=== PATIENT | male | born 1945 | race Caucasian/White ===

== ENCOUNTER 2019-07-03 13:14 | Emergency (ER) | payer MEDICARE, SELFPAY ==
[2019-07-03 13:20] VITALS: BP 149/83; PULSE 106; RESP 18; TEMP 38.3; O2SAT 96
--- NOTE | 2019-07-03 13:53 | ED.URI ---
HPI - URI/Sore Throat General Chief Complaint: Upper Respiratory Infection Stated Complaint: cough/fever Time Seen by Provider: 07/03/19 13:45 Source: patient and RN notes reviewed Mode of arrival: ambulatory Limitations: no limitations History of Present Illness HPI Narrative: Patient presents today complaining of fever up to 102, cough, body aches, headache, congestion, rhinorrhea since last night. Denies shortness of breath, nausea, vomiting. He has been taking Tylenol without relief. reports Tylenol does decrease fever. He did receive a flu vaccine this season. Denies history of asthma or COPD. MD elicited complaint: fever Related Data Home Medications Medication Instructions Recorded Confirmed aspirin [Adult Low Dose Aspirin] 07/03/19 atorvastatin 07/03/19 isosorbide mononitrate mg PO 07/03/19 lisinopril 07/03/19 Allergies Allergy/AdvReac Type Severity Reaction Status Date / Time No Known Allergies Allergy Verified 07/03/19 13:26 Review of Systems Review of Systems: Narrative: CONSTITUTIONAL: Denies chills, or sweats.+ Fever, body aches EYES: Denies visual changes, redness, or discharge. ENT: Denies sore throat, or otalgia.+ Congestion, rhinorrhea CARDIOVASCULAR: Denies chest pain, palpitations, or edema. RESPIRATORY: Denies cough or dyspnea. GASTROINTESTINAL: Denies abdominal pain, nausea, vomiting, or diarrhea. GENITOURINARY: Denies dysuria or hematuria. SKIN: Denies rash, itching, or wounds. MUSCULOSKELETAL: Denies back pain, joint pain, or myalgia. NEUROLOGIC: Denies numbness, tingling, or weakness.+ Headache PSYCH: Denies depression or anxiety. PMFSH Comments At time of signature, I have reviewed and agree with nursing past medical, surgical, social and family history unless otherwise noted. Please see nursing chart for further information. There is no relevant family history pertinent to the presenting complaint Exam Narrative: Exam Narrative: GENERAL: Mildly ill-appearing, well-nourished, and in no acute distress. HEAD: Normocephalic, atraumatic. EYES: EOMI. No redness or drainage. Conjunctivae normal. ENT: Mucous membranes pink and moist. Nares congested. No rhinorrhea. TMs normal bilaterally. Throat normal. Uvula midline. NECK: Normal AROM. Supple. No lymphadenopathy. CHEST: No respiratory distress. Clear to auscultation. HEART: Regular rate and rhythm. No murmur appreciated. Normal peripheral pulses. EXTREMITIES: Normal range of motion. No edema. SKIN: Warm, dry, no rash. NEURO: No focal deficits. Alert and oriented x3. Gait steady. PSYCH: Normal affect. No signs of depression or anxiety. Course Vital Signs Vital signs: Vital Signs Temperature 101.0 F H 07/03/19 13:20 Pulse Rate 106 H 07/03/19 13:20 Respiratory Rate 18 07/03/19 13:20 Blood Pressure 149/83 H 07/03/19 13:20 Pulse Oximetry 96 07/03/19 13:20 Temperature 101.0 F H 07/03/19 13:20 Pulse Rate 106 H 07/03/19 13:20 Respiratory Rate 18 07/03/19 13:20 Blood Pressure 149/83 H 07/03/19 13:20 Pulse Oximetry 96 07/03/19 13:20 Reviewed. Pt has been instructed to follow up with his PCP regarding his elevated blood pressure today. MDM - URI/Sore Throat Differential Diagnosis Differential diagnosis: Likely upper respiratory infection, sinusitis, viral infection and influenza Lab Data Attestation: I reviewed the patient's lab results. Labs: Influenza A Screen Positive Reference Range: Negative Influenza B Screen Negative Reference Range: Negative Critical Care Time Critical Care Time Critical Care Time: No Discharge Plan Discharge Clinical Impression: Influenza A Patient Disposition: Home, Self-Care Condition: Stable Instructions: Influenza (DC) Additional Instructions: You are positive for influenza A. You will be contagious for 4 more days. Take Tylenol or ibuprofen at home for pain or fever. Follow-up with patito
== END 2019-07-03 13:55 | disposition home or self-care (01) ==
PROVIDERS: Emergency Provider Nurse Practitioner; PCP Family Medicine
DX: J10.1 Influenza due to other identified influenza virus with other respiratory manifestations (principal); I10 Essential (primary) hypertension
CPT/HCPCS: 87804; 99212; G0463

== ENCOUNTER 2022-08-17 14:00 | Outpatient (CLI) | payer MEDICARE, SELFPAY ==
[2022-08-17 18:16] LABS: Basophils Absolute Auto 0.1 K/mm3 (0.0-0.1); Basophils Percent Auto 0.8 % (0.2-1.2); Eosinophils Absolute Auto 0.4 K/mm3 (0-0.3); Eosinophils Percent Auto 5.5 % (0-4.4); Hematocrit 42.4 % (42.0-52.0); Hemoglobin 14.1 g/dL (14.0-18.0); Immature Granulocyte Absolute 0.02 K/mm3 (0.00-0.031); Immature Granulocyte Percent A 0.3 % (0-0.5); Lymphocytes Absolute Auto 1.92 K/mm3 (0.9-3.2); Lymphocytes Percent Auto 29.2 % (18.3-44.2); Mean Corpuscular HGB Conc 33.3 g/dl (32-36); Mean Corpuscular Hemoglobin 30.5 pg (26-34); Mean Corpuscular Volume 91.8 fl (80-100); Monocytes Absolute Auto 0.8 K/mm3 (0.1-0.6); Monocytes Percent Auto 12.6 % (2.6-8.5); Neutrophils Absolute Auto 3.4 K/mm3 (1.3-6.7); Neutrophils Percent Auto 51.6 % (45.5-73.1); Platelet Count Result 233 k/mm3 (150-375); Red Blood Count 4.62 M/mm3 (4.6-6.20); Red Cell Distribution Width 13.1 % (11.5-14.5); White Blood Count 6.6 K/mm3 (4.5-10.0)
[2022-08-17 18:55] LABS: Alanine Aminotransferase 29 U/L (6-50); Albumin Level 4.2 g/dL (3.5-5.1); Alkaline Phosphatase 91 U/L (38-126); Anion Gap 4 mmol/L (8-16); Aspartate Amino Transferase 76 U/L (17-59); Blood Urea Nitrogen 17 mg/dL (9-20); Calcium 8.9 mg/dL (8.4-10.2); Carbon Dioxide 34 mmol/L (22-30); Chloride 102 mmol/L (98-107); Cholesterol 117 mg/dL (0-200); Estimated Glomerular Filt Rate > 60; Glucose 74 mg/dL (65-110); HDL Direct 34 mg/dL; Potassium 4.8 mmol/L (3.4-5.0); Sodium 140 mmol/L (137-145); Triglycerides 105 mg/dL (<150)
[2022-08-17 19:06] LABS: LDL Cholesterol Direct 52 mg/dL; Thyroid Stimulating Hormone Reflex 0.513 uIU/mL (0.465-4.68)
[2022-08-17 19:22] LABS: Prostate Specific Antigen 4.7 ng/mL (< OR = 4.0)
== END 2022-08-17 14:01 | disposition home or self-care (01) ==
LOC: ANHGOSHLAB 14:01
PROVIDERS: PCP Family Medicine; Visit Provider Family Medicine
DX: E78.5 Hyperlipidemia, unspecified (principal); E53.8 Deficiency of other specified B group vitamins; I10 Essential (primary) hypertension; E55.9 Vitamin D deficiency, unspecified; Z12.5 Encounter for screening for malignant neoplasm of prostate
CPT/HCPCS: 36415; 80053; 80061; 82306; 82607; 84153; 84443; 85025; G0103

== ENCOUNTER 2022-09-20 10:40 | Outpatient (CLI) | payer MEDICARE, SELFPAY ==
[2022-09-20 19:16] LABS: Alanine Aminotransferase 27 U/L (6-50); Albumin Level 4.2 g/dL (3.5-5.1); Alkaline Phosphatase 93 U/L (38-126); Anion Gap 7 mmol/L (8-16); Aspartate Amino Transferase 67 U/L (17-59); Bilirubin,Total 0.9 mg/dL (0.2-1.3); Blood Urea Nitrogen 13 mg/dL (9-20); Calcium 8.9 mg/dL (8.4-10.2); Carbon Dioxide 30 mmol/L (22-30); Chloride 103 mmol/L (98-107); Estimated Glomerular Filt Rate > 60; Glucose 75 mg/dL (65-110); Potassium 4.3 mmol/L (3.4-5.0); Sodium 140 mmol/L (137-145)
[2022-09-25 11:05] LABS: PSA, Free 0.96 ng/mL; PSA, Total 4.4 ng/mL (<=4.0); Percent Free Prostate Spec Ag 22 % (>25)
== END 2022-09-20 10:41 | disposition home or self-care (01) ==
LOC: ANHGOSHLAB 10:40
PROVIDERS: PCP Family Medicine; Visit Provider Family Medicine
DX: R79.89 Other specified abnormal findings of blood chemistry (principal); R97.20 Elevated prostate specific antigen [PSA]
CPT/HCPCS: 36415; 80053; 84153; 84154

== ENCOUNTER 2023-02-14 10:11 | Outpatient (CLI) | payer MEDICARE, SELFPAY ==
[2023-02-14 18:59] LABS: Prothrombin Time 13.7 Seconds (11.1-14.7)
[2023-02-14 19:15] LABS: Alanine Aminotransferase 27 U/L (6-50); Albumin Level 4.2 g/dL (3.5-5.1); Alkaline Phosphatase 84 U/L (38-126); Anion Gap 4 mmol/L (8-16); Aspartate Amino Transferase 63 U/L (17-59); Bilirubin,Total 1.2 mg/dL (0.2-1.3); Blood Urea Nitrogen 18 mg/dL (9-20); Calcium 9.3 mg/dL (8.4-10.2); Carbon Dioxide 32 mmol/L (22-30); Chloride 103 mmol/L (98-107); Estimated Glomerular Filt Rate > 60; Glucose 76 mg/dL (65-110); Potassium 4.3 mmol/L (3.4-5.0); Sodium 139 mmol/L (137-145)
[2023-02-17 19:26] LABS: PSA, Free 0.91 ng/mL; PSA, Total 4.5 ng/mL (<=4.0); Percent Free Prostate Spec Ag 20 % (>25)
== END 2023-02-14 10:12 | disposition home or self-care (01) ==
PROVIDERS: PCP Family Medicine; Visit Provider Family Medicine
DX: R97.20 Elevated prostate specific antigen [PSA] (principal); I10 Essential (primary) hypertension; R79.89 Other specified abnormal findings of blood chemistry; I51.89 Other ill-defined heart diseases; I25.10 Atherosclerotic heart disease of native coronary artery without angina pectoris; Z79.899 Other long term (current) drug therapy
CPT/HCPCS: 36415; 80053; 84153; 84154; 85610

== ENCOUNTER 2023-08-30 09:58 | Outpatient (CLI) | payer MEDICARE, SELFPAY ==
[2023-08-30 13:57] LABS: Basophils Percent Auto 0.4 % (0.2-1.2); Eosinophils Absolute Auto 0.4 K/mm3 (0-0.3); Eosinophils Percent Auto 5.1 % (0-4.4); Hematocrit 45.8 % (42.0-52.0); Hemoglobin 14.7 g/dL (14.0-18.0); Immature Granulocyte Absolute 0.02 K/mm3 (0.00-0.031); Immature Granulocyte Percent A 0.3 % (0-0.5); Lymphocytes Absolute Auto 1.83 K/mm3 (0.9-3.2); Lymphocytes Percent Auto 25.3 % (18.3-44.2); Mean Corpuscular HGB Conc 32.1 g/dl (32-36); Mean Corpuscular Hemoglobin 30.6 pg (26-34); Mean Corpuscular Volume 95.4 fl (80-100); Mean Platelet Volume 10.5 fl (7.4-10.4); Monocytes Absolute Auto 0.8 K/mm3 (0.1-0.6); Monocytes Percent Auto 10.4 % (2.6-8.5); Neutrophils Absolute Auto 4.2 K/mm3 (1.3-6.7); Neutrophils Percent Auto 58.5 % (45.5-73.1); Platelet Count Result 219 k/mm3 (150-375); Red Cell Distribution Width 13.2 % (11.5-14.5); White Blood Count 7.2 K/mm3 (4.5-10.0)
[2023-08-30 14:03] LABS: Alanine Aminotransferase 31 U/L (6-50); Albumin Level 4.3 g/dL (3.5-5.1); Alkaline Phosphatase 83 U/L (38-126); Anion Gap 6 mmol/L (4-12); Aspartate Amino Transferase 57 U/L (17-59); Blood Urea Nitrogen 16 mg/dL (9-20); Calcium 9.6 mg/dL (8.4-10.2); Carbon Dioxide 27 mmol/L (22-30); Chloride 108 mmol/L (98-107); Cholesterol 139 mg/dL (0-200); Estimated Glomerular Filt Rate > 60; Glucose 100 mg/dL (65-110); HDL Direct 43 mg/dL; Potassium 4.3 mmol/L (3.4-5.0); Sodium 141 mmol/L (137-145); Triglycerides 102 mg/dL (<150)
[2023-08-30 14:14] LABS: LDL Cholesterol Direct 71 mg/dL
[2023-08-30 15:01] LABS: Vitamin D 25 Hydroxy 26.3 ng/mL
[2023-09-02 11:04] LABS: PSA, Free 1.1 ng/mL; PSA, Total 5.8 ng/mL (< OR = 4.0); Percent Free Prostate Spec Ag 19 % (calc) (>25)
== END 2023-08-30 09:59 | disposition home or self-care (01) ==
LOC: ANHGOSHLAB 09:59
PROVIDERS: PCP Family Medicine; Visit Provider Family Medicine
DX: R97.20 Elevated prostate specific antigen [PSA] (principal); I51.89 Other ill-defined heart diseases; I10 Essential (primary) hypertension; E53.8 Deficiency of other specified B group vitamins; E55.9 Vitamin D deficiency, unspecified; E78.5 Hyperlipidemia, unspecified; Z51.89 Encounter for other specified aftercare
CPT/HCPCS: 36415; 80053; 80061; 82306; 82607; 84153; 84154; 84443; 85025

== ENCOUNTER 2024-02-21 08:34 | Outpatient (CLI) | payer MEDICARE, SELFPAY ==
--- NOTE | ~2024-02-21 | NM_ITS ---
Whole-body bone scan: History: Prostate cancer. Radiopharmaceutical: 24.6 mCi of technetium 99m MDP was administered intravenously. COMPARISON: None Procedure: Three hour delayed anterior and posterior whole-body bone scan was performed. Findings: No abnormal uptake seen to suggest osteoblastic metastatic disease. Probable mild degenerat patricia uptake at the shoulders and sternoclavicular joints.. Impression: No evidence of osteoblastic metastatic disease. Reviewed, dictated and finalized at location . Impression: No evidence of osteoblastic metastatic disease.
--- NOTE | ~2024-02-21 | CT_ITS ---
CT of the Abdomen and Pelvis: Indication: Prostate cancer Technique: 2.5 mm axial scans were obtained through the abdomen and pelvis following intravenous adm inistration of 100 cc of Omnipaque 350. Dose reduction technique was used on this scan by utilizing a utomated exposure control and iterative reconstruction technique. The dose-length product (DLP) was 1 314.00 mGy-cm. Findings: Scans through the lung bases demonstrate 6 mm right basilar pulmonary nodule (axial image 30). There is bibasilar atelectatic change. The liver, spleen, pancreas, gallbladder, adrenals and kidneys are within normal limits. There are at herosclerotic calcifications of the aorta. Distal abdominal aorta measures up to 3.1 cm in diameter. No lymphadenopathy. No bowel obstruction or bowel wall thickening. There is no evidence to suggest acute appendicitis. Images through the pelvis were performed. Urinary bladder unremarkable. Prostate gland is enlarged. N o pelvic mass evident. No ascites. Impression: 6 mm right basilar pulmonary nodule, indeterminate. Follow-up exam advised given history of prostate cancer. No evidence of metastatic disease noted or pelvis otherwise. Enlarged prostate gland. 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 Reviewed, dictated and finalized at location M. Impression: 6 mm right basilar pulmonary nodule, indeterminate. Follow-up exam advised give n history of prostate cancer. No evidence of metastatic disease noted or pelvis otherwise. Enlarged prostate gland. 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
[2024-02-21 09:15] LABS: Estimated Glomerular Filt Rate > 60
== END 2024-02-21 08:35 | disposition home or self-care (01) ==
LOC: ANHIMG 08:38
PROVIDERS: PCP Family Medicine; Visit Provider Urology
DX: C61 Malignant neoplasm of prostate (principal)
CPT/HCPCS: 74177; 78306; A9503; Q9967

== ENCOUNTER 2024-03-05 09:10 | Outpatient (CLI) | payer MEDICARE, SELFPAY ==
[2024-03-05 19:08] LABS: Alanine Aminotransferase 36 U/L (6-50); Albumin Level 4.4 g/dL (3.5-5.1); Alkaline Phosphatase 105 U/L (38-126); Anion Gap 9 mmol/L (4-12); Aspartate Amino Transferase 57 U/L (17-59); Bilirubin,Total 1.4 mg/dL (0.2-1.3); Blood Urea Nitrogen 15 mg/dL (9-20); Carbon Dioxide 28 mmol/L (22-30); Chloride 101 mmol/L (98-107); Estimated Glomerular Filt Rate > 60; Glucose 102 mg/dL (65-110); Potassium 4.5 mmol/L (3.4-5.0); Sodium 138 mmol/L (137-145)
[2024-03-05 19:45] LABS: Vitamin D 25 Hydroxy 29.1 ng/mL
[2024-03-05 22:38] LABS: Hemoglobin A1C 5.9 % (<5.7)
== END 2024-03-05 09:11 | disposition home or self-care (01) ==
LOC: ANHGOSHLAB 09:11
PROVIDERS: PCP Family Medicine; Visit Provider Family Medicine
DX: R73.9 Hyperglycemia, unspecified (principal); E55.9 Vitamin D deficiency, unspecified; I10 Essential (primary) hypertension
CPT/HCPCS: 36415; 80053; 82306; 83036

== ENCOUNTER 2024-09-17 07:00 | Outpatient (NON) | payer MEDICARE, SELFPAY ==
--- NOTE | 2024-09-17 14:03 | S_PTH ---
PATIENT: Reed Michel LOC: ANHLAB #:[id number] AGE/SX: 79/M ROOM: RE09/17/[address]: Miller Sylvester MD : 1945 BED: DIS: 09/17/2024 SPEC #: [id number] RECD: 09/18/24 06:55 STATUS: DAWNA REQ #: [id number] PRADIP: 09/17/24 14:[address]: Miller Sylvester DEPT: [facility] Surgical RECD BY: Nicolasa Hillman Tissues: A - Skin Procedures: Hematoxylin and Eosin Stain Gross and Microscopic Level 4 Comments: @ Originally on account #[id number] Req #[id number]
--- OUTSIDE RECORDS SUMMARY | 2025-08-17 15:25 | XMS_ITS | Clinical Summary ---
Author Organization [facility] Address [address] [place] [address] Phone Care Team Providers Care Car Dealer Name Role Phone Raysa Yuan MD Primary Care Provider Sourav Davis MD Unavailable [phone] Elvira Vargas MD Unavailable Bharath Snyder MD Unavailable [phone] Miscellaneous, Not In File Unavailable Unava ilable Allergies No known active allergies Medications acetaminophen (TYLENOL) 325 mg tabletIndicatio ns:Pain Take 2 tablets (650 mg total) by mouth every 6 (six) hours as needed for pain 05/14/19 17 Active aspirin 81 mg tablet Take 1 tablet (81 mg total) by mouth every morning 05/14/19 17 Active cyanocobalamin (Vitamin B-12) 2,500 mcg tablet, sublingual Take 1 tablet (2,500 mcg total) by mouth daily Active lisinopriL (PRINIVIL,ZESTR IL) 5 mg tablet TAKE 1 TABLET(5 MG) BY MOUTH DAILY 90 tablet 3 11/12/19 25 Active cholecalciferol (VITAMIN D-3) 2000 unit capsule Take 1 capsule (2,000 Units total) by mouth every morning 09/22/19 25 Active docusate sodium (COLACE) 100 mg capsuleIndicati ons:constipatio n Take 1 capsule (100 mg total) by mouth 2 (two) times a day 10 capsule 12/26/19 25 Active acetaminophen 500 mg capsule Take 2 capsules (1,000 mg total) by mouth every 6 (six) hours as needed for pain 12/26/19 25 Active tamsulosin (FLOMAX) 0.4 mg extended release capsule Take 2 capsules (0.8 mg total) by mouth daily with dinner 60 capsule 1 12/26/19 25 Active clindamycin (CLEOCIN) 300 mg capsule Take 2 capsules (600 mg total) by mouth once as needed (1 hour prior to dental work) 4 capsule 1 02/03/20 25 Active clopidogreL (PLAVIX) 75 mg tablet TAKE 1 TABLET(75 MG) BY MOUTH DAILY 90 tablet 3 05/14/19 26 Active metoprolol tartrate (LOPRESSOR) 25 mg immediate release tablet TAKE 1/2 TABLET(12.5 MG) BY MOUTH TWICE DAILY 45 tablet 1 06/18/19 26 Active spironolactone (ALDACTONE) 25 mg tablet Take 1 tablet (25 mg total) by mouth daily 30 tablet 11 06/22/19 26 027 Active furosemide (LASIX) 40 mg tablet Take 1 tablet (40 mg total) by mouth daily 90 tablet 3 07/07/19 26 027 Active atorvastatin (LIPITOR) 80 mg tablet TAKE 1 TABLET(80 MG) BY MOUTH DAILY 90 tablet 3 08/17/19 26 Active isosorbide mononitrate ER (IMDUR) 120 mg 24 hr tablet TAKE 1 TABLET(120 MG) BY MOUTH DAILY 90 tablet 3 08/17/19 26 Active atorvastatin (LIPITOR) 80 mg tablet Take 1 tablet (80 mg total) by mouth daily 90 tablet 3 08/13/19 25 026 Discontinued isosorbide mononitrate ER (IMDUR) 120 mg 24 hr tablet Take 1 tablet (120 mg total) by mouth daily 90 tablet 05/14/19 26 026 Discontinued Active Problems Problem Noted Date Diagnosed Date Acute diastolic heart failure 06/15/2025 Pacemaker 02/02/2025 Assessment & Plan (05/20/2025 1:04 PM DIRECTOR DENTAL SERVICES): -Dual chamber pacemaker is functioning appropriately as programmed -Lead impedances, sensing, and thresholds are stable -No programming changes -Continue remote monitoring quarterly -Follow up in 1 year for device check Assessment & Plan (02/02/2025 4:23 PM CDT): 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, now s/p PPM implant Continue to follow in device clinic, EP Urinary retention 12/24/2024 Assessment & Plan (12/24/2024 4:14 PM CDT): Developed urinary retention earlier this AM Has underlying prostate cancer Increase flomax to 0.8 mg 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 Assessment & Plan (02/02/2025 4:23 PM CDT): S/p TF TAVR, 26 mm Jean-Claude 3 UR valve on 12/21/24 Post op TTE: mean gradient 9 mmHg, trace AR Echo repeated today, results pending NYHA Class I-II Continue ASA Start cardiac rehab Reviewed SBE prophylaxis; rx sent to local pharmacy Labs ordered Assessment & Plan (12/24/2024 4:14 PM CDT): Complicated by transient CHB requiring temp pacer admitted to CCU EP consulted-now s/p PPM 12/23 TTE completed Aortic stenosis, severe 12/21/2024 Severe aortic stenosis 12/03/2024 Assessment & Plan (12/21/2024 8:22 AM CDT): TF TAVR 12/21 Encounter for examination fo r normal comparison and control in clinical research program 12/03/2024 High degree atrioventricular block 12/03/2024 Assessment & Plan (05/20/2025 2:21 PM DIRECTOR DENTAL SERVICES): -Complete heart block following TAVR 12/21/2024 -Dual chamber pacemaker (left bundle area pacing area lead) was placed 12/23/2024 -He is not pacemaker dependent -Reports increased SOB and LE swelling, echocardiogram scheduled today per cardiology. 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, now s/p PPM implant Continue to follow in device clinic, EP Assessment & Plan (12/24/2024 4:13 PM CDT): Now s/p PPM 12/23 Right bundle branch block 12/03/2024 Heart block, first degree 12/03/2024 Moderate aortic stenosis 01/28/2024 Fatigue 02/01/2020 Assessment [...] (coronary artery disease) 01/31/2020 Assessment & Plan (02/02/2025 4:23 PM CDT): Multiple prior PCI Most recent, PCI to LCx/OM in December 2024 Denies anginal symptoms Continue DAPT, ASA + clopidogrel Cardiac rehab Assessment & Plan (12/21/2024 8:24 AM CDT): Multiple PCIs in past Most recently PCI to cx/OM 12/10/2024 Continue DAPT and statin Assessment & Plan (01/19/2021 1:34 PM CDT): [...] slntg prn for chest pain 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 [...] pain HLD (hyperlipidemia) 01/31/2020 Assessment & Plan (12/21/2024 8:25 AM CDT): Continue statin Assessment & Plan (01/19/2021 1:33 PM CDT): Continue atorvastatin 80 mg. Assessment & Plan (02/01/2020 11:12 AM CDT): Cont statin Assessment & Plan (01/31/2020 4:17 PM CDT): Continue Atorvastatin 80 mg daily Check lipid panel with AM labs HAVASUPAI (hard of hearing) 01/31/2020 Assessment & Plan (01/31/2020 4:20 PM CDT): Pt is hard of hearing Hypertension 12/24/2017 Assessment & Plan (12/21/2024 8:23 AM CDT): Goal SBP <160 and MAP >65 Can use hydralazine PRN for SBP >160 Assessment & Plan (01/19/2021 1:33 PM CDT): [...] Encounters Date Type Department Care Team Description 08/02/2025 Remote Device Check [facility] Medicine Cardiology [address] [facility] [[email or web address]] [address] [place] [address] Leslie Heath MD 07/06/2025 Orders Only [facility] Cardiology [address] [facility] 8th [place] [address] [place] [address] Bharath Snyder MD S/P TAVR (transcatheter aortic valve replacement) (Primary Dx) 06/17/2025 Telephone [facility] Cardiology [address] [facility] 8th [place] [address] [place] [address] Cha Leach RN 06/17/2025 Telephone [facility] Cardiology [address] [facility] 8th [place] [address] [place] [address] Bharath Snyder MD 06/09/2025 3:00 PM DIRECTOR DENTAL SERVICES Office Visit [facility] Cardiology [address] [facility] [address] [place] [address] S/P TAVR (transcatheter aortic valve replacement) (Primary Dx); Acute diastolic heart failure (HCC) 05/20/2025 2:00 PM DIRECTOR DENTAL SERVICES Ancillary Procedure [facility] [address] [facility] [address] [place] [address] S/P TAVR (transcatheter aortic valve replacement) 05/20/2025 1:45 PM DIRECTOR DENTAL SERVICES Lab [facility] [address] [place] [address] Aortic valve stenosis, etiology of cardiac valve disease unspecified; SPARKS (dyspnea on exertion); Lower extremity edema 05/20/2025 1:30 PM DIRECTOR DENTAL SERVICES Office Visit [facility] Medicine Cardiology [address] [place] [address] [address] [place] [address] Areli Arboleda NP Pacemaker (Primary Dx); High degree atrioventricular block; Aortic valve stenosis, etiology of cardiac valve disease unspecified; SPARKS (dyspnea on exertion); Lower extremity edema 05/20/2025 1:00 PM DIRECTOR DENTAL SERVICES Ancillary Procedure [facility] Medicine Cardiology [address] [place] [address] 3 [address] [place] [address] Fitting or adjustment of cardiac pacemaker; CHB (complete heart block) 05/20/2025 Results Follow-Up [facility] Cardiology [address] [facility] 8th [place] [address] [place] [address] Areli Arboleda NP eGFR, Pro B-type natriuretic peptide, Basic metabolic panel from Last 3 Months Immunizations Immunization Administration Dates Next Due Influenza, Quadrivalent, Hig h Dose, Preservative Free, Intrr 02/06/2021 Surgical History Surgery Date Site/Laterality Comments CARDIAC CATHETERIZATION CORONARY STENT PLACEMENT 04/10/2016 CORONARY STENT PLACEMENT 02/06/2021 PROSTATE BIOPSY CARDIAC CATHETERIZATION 12/10/2024 N/A Procedure: LEFT HEART CATHETERIZATION WITH CORONARY ANGIOGRAPHY AND WITH OR WITHOUT LEFT VENTRICULOGRAM 35624; Surgeon: Sourav Davis MD; Location: [facility] CARDIAC SAL[facility]AGE LABORER; Service: Cardiovascular; Laterality: N/A; contact pts daughter, Daisy, with details. [phone] CARDIAC CATHETERIZATION 12/10/2024 N/A Procedure: PCI DCB PTCA W IVUS - MAJOR CORONARY 0913T; Surgeon: Sourav Davis MD; Location: [facility] CARDIAC [facility]AGE LAB[facility]ER; Service: Cardiovascular; Laterality: N/A; CARDIAC CATHETERIZATION 12/10/2024 N/A Procedure: IVUS/OCT CORS OR GRAFTS, FIRST VESSEL (+) 13095; Surgeon: Souarv Davis MD; Location: [facility] CARDIAC [facility]AGE LABORER; Service: Cardiovascular; Laterality: N/A; CARDIAC CATHETERIZATION 12/10/2024 N/A Procedure: PCI ATHERECTOMY - MAJOR CORONARY 85851; Surgeon: Sourav Davis MD; Location: [facility] CARDIAC SAL[facility]AGE LAB[facility]ER; Service: Cardiovascular; Laterality: N/A; COLONOSCOPY CARDIAC ELECTROPHYSIOLOGY PROCEDURE 12/23/2024 N/A Procedure: IMPLANT DUAL CHAMBER PPM SYSTEM W/ DUAL ELECTRODES (GEN AND LEADS, NEW OR REPLACE) 68420; Surgeon: Leslie Heath MD; Location: [facility] EP LAB; Service: Cardiovascular; Laterality: N/A; Medical devices from this surgery are in the Medical Devices section. CARDIAC CATHETERIZATION 12/21/2024 Chest/N/A Procedure: TAVR - PERCUTANEOUS FEMORAL 55899; Surgeon: Bharath Snyder MD; Location: [facility] EP LAB; Service: Cardiovascular; Laterality: N/A; First case. 0600 arrival Paz Medical devices from this surgery are in the Medical Devices section. Medical History Medical History Date Comments H/O heart artery stent Hypertension Coronary artery disease Covid-19 01/31/2020 Hyperlipidemia Aortic stenosis Grade II diastolic dysfunction Prostate cancer (HCC) Family History Medical History Relation Name Comments Coronary artery disease Brother Fami ly history of coronary artery disease - (Added by TW Conv) Heart disease Brother valve replacem ent 70's Coronary artery disease Father CABG Heart failure Father Family history of heart failure - (Added by Conv) Lung disease Father Family history of lung disease - (Added by TW Conv) Arrhythmia Mother PPM Coronary artery disease Mother Fami ly history of coronary artery disease - (Added by TW Conv) Heart failure Mother Family history of heart failure - (Added by TW Conv) Stroke Mother Family history of stroke - (Added by TW Conv) Anesthesia problems Neg Hx Relation Name Status Comments Brother Father Mother Social History Tobacco Use Types Packs/Day Years Used Date Smoking Tobacco: Former Cigars Passive Smoke Exposure: Past Smokeless Tobacco: Never Tobacco Cessation:Counseling Given: Not Answered Alcohol Use Standard Drinks/Week Comments Yes 1 (1 standard drink = 0.6 oz pur e alcohol) AUDIT-C Answer Date Recorded Q1: How often do you have a drink containing alc ohol? 2-4 times a month 12/21/2024 Q2: How many drinks containi ng alcohol do you have on a typical day when you are drinking? 1 or 2 12/21/2024 Q3: How often do you have si x or more drinks on one occasion? Never 12/21/2024 Personal Safety Answer Date Recorded Have you ever been in or are you currently in a harmful physical or emotional relationship or is someone making you feel afraid or unsafe? Denies 12/21/2024 Sex and Gender Information Value Date Recorded Sex Assigned at Not on file Legal Sex Male 8:24 AM DIRECTOR DENTAL SERVICES Gender Identity Not on file Sexual Orientation Not on file Last Filed Vital Signs Vital Sign Reading Time Taken Comments Blood Pressure 132/60 06/09/2025 2:52 PM DIRECTOR DENTAL SERVICES Pulse 62 06/09/2025 2:52 PM DIRECTOR DENTAL SERVICES Temperature 36.7 C (98.1 F) 12/25/2024 12:00 PM CDT Respiratory Rate 18 12/25/2024 12:00 PM CDT Oxygen Saturation 97% 06/09/2025 2:52 PM DIRECTOR DENTAL SERVICES Inhaled Oxygen Concentration - - Weight 115.7 kg (255 lb) 06/09/2025 2:52 PM DIRECTOR DENTAL SERVICES Height 188 cm (6' 2) 06/09/2025 2:52 PM DIRECTOR DENTAL SERVICES Body Mass Index 32.74 06/09/2025 2:52 PM DIRECTOR DENTAL SERVICES Plan of Treatment Health Maintenance Due Date Last Done Comments Depression Screening 1945 Hepatitis C Screening 1945 Hepatitis B Screening 1965 Zoster Vaccine (1 of 2) 1997 Abdominal Aortic Aneurysm (A AA) Screen 2012 Well Visit 65+ 2012 Pneumococcal vaccine 65+ (2 of 2 - PCV) 05/04/2015 05/04/2014 DTaP/Tdap/Td Vaccine (2 - Td or Tdap) 05/04/2024 05/04/2014 Fall Risk Assessment 12/25/2025 12/25/2024 Influenza Vaccine (Season Ended) 2026 01/25/2024, 02/06/2021, 02/16/2019, Additional history exists Medical Devices Implanted Type Area Hot Roll Inspector Device Identifier Shelf Expiration Date Model / Serial / Lot Daig Fernanda/[employer] [id number] Angio-Seal Evolution 6fr .035in Guidewire Bypass Tube Suture - [id number] - [id number] Implanted:Qty: 1 on 01/05/2021 by Sourav Davis MD at [facility] Collagen Right: Femoral [employer] Fernanda 08/03/2021 [id number] / [id number] / [id number] Daig Fernanda[employer] [id number] Angio-Seal Evolution 6fr .035in Guidewire Bypass Tube Suture - [id number] - [id number] Implanted:Qty: 1 on 02/06/2021 by Sourav Davis MD at [facility] Collagen [employer] Fernanda 09/02/2021 [id number] / [id number] / [id number] Angio-Seal Vip 6fr Closere Device [id number] - [id number] - [id number] Implanted:Qty: 1 on 10/26/2021 by Sourav Davis MD at [facility] Collagen Right: Groin [employer] Fernanda 08/03/2022 [id number] / [id number] / [id number] [employer] Fernanda Angio-Seal Vip 6fr Closere Device [id number] - [id number] - [id number] Implanted:Qty: 1 on 02/24/2024 by Sourav Davis MD at [facility] Collagen Right: Common Femoral Artery [employer] Fernanda 07/07/2024 [id number] / [id number] / [id number] Medtronic Inc Selectsecure 4.1fr 69cm Bipolar Screw In Is-1 Atrium Ventricle [id number] - [id number] - [id number] Implanted:Qty: 1 on 12/23/2024 by Leslie Heath MD at [facility] Lead Medtronic Inc 10/08/2026 [id number] / [id number] / Medtronic Inc Capsurefix Novus 6.2fr 2mm 52cm Bipolar Screw In Implantable Latex Free 5076-52 - [id number] - [id number] Implanted:Qty: 1 on 12/23/2024 by Leslie Heath MD at [facility] Lead Medtronic Inc 09/01/2026 5076-5 2 / [id number] / Medtronic Inc Tyrx Absorbable Antibacterial Envelope Med 2.7x2.5in [id number] - [id number] Implanted:Qty: 1 on 12/23/2024 by Leslie Heath MD at [facility] Other - see comments Medtronic Inc 09/09/2025 [id number] / / [id number] Description:Tyrx envelope Medtronic Inc Sheyenne S Mri Surescan 50.8x46.6mm 2 Chamber 7.4mm Pacemaker 22.5gm [id number] - [id number] - [id number] Implanted:Qty: 1 on 12/23/2024 by Leslie Heath MD at [facility] Pacemaker Medtronic Inc 04/18/2026 [id number] / [id number] / Paz [employer] Valve Aortic Trnscath Jean-Claude 3 Ultra Resilia 26mm [id number] - [id number] - [id number] Implanted:Qty: 1 on 12/21/2024 by Bharath Snyder MD at [facility] Prosthetic Valve N/A: Aortic Valve Paz [employer] 08/26/2027 [id number] / [id number] / [employer] Fernanda [id number] Synergy Xd Monorail 2.25mm 38mm 144cm Delivery System 1 Access - [id number] - [id number] Implanted:Qty: 1 on 01/05/2021 by Sourav Davis MD at [facility] Stent N/A: Coronary [employer] Fernanda 08/30/2022 [id number] / [id number] / [id number] [employer] Fernanda [id number] Synergy Xd Monorail 2.5mm 16mm 144cm Delivery System 1 Access - [id number] - [id number] Implanted:Qty: 1 on 01/05/2021 by Sourav Davis MD at [facility] Stent N/A: Coronary [employer] Fernanda 09/19/2022 [id number] / [id number] / [id number] Biotronik Inc [id number] Stent Coronary De Rx Cocr Ors Msn 2.5x22mm - [id number] - [id number] Implanted:Qty: 1 on 02/06/2021 by Sourav Davis MD at [facility] Stent N/A: Coronary [employer] Inc 11/07/2022 [id number] / [id number] / [id number] Biotronik Inc 838457 Stent Coronary De Rx Cocr Ors Msn 3.0x15mm - [id number] - [id number] Implanted:Qty: 1 on 02/06/2021 by Sourav Davis MD at [facility] Stent N/A: Coronary [employer] Inc 11/08/2022 [id number] / [id number] / [id number] Biotron[employer] Inc Stent Coronary De Rx Cocr Ors Msn 2.5x40mm 629038 - [id number] - [id number] Implanted:Qty: 1 on 10/26/2021 by Sourav Davis MD at [facility] Stent N/A: Circumflex Coronary Artery [employer]ot[employer] Inc 05/24/2023 [id number] / [id number] / [id number] [employer] System Closure Repair Femoral Artery Suture Mediated Perclose Prostyle 96826-34 - [id number] Implanted:Qty: 1 on 12/21/2024 by Elvira Vargas MD at [facility] Vascular Closure Device Right: Common Femoral Artery [employer] 10/03/2026 78362-43 / / [id number] [employer] Fernanda Angio-Seal Vip 6fr Closere Device [id number] - [id number] Implanted:Qty: 1 on 12/21/2024 by Bharath Snyder MD at [facility] Left: Common Femoral Artery [employer] Fernanda 01/21/2025 [id number] / / [id number] Procedures Procedure Name Priority Date/Time Associated Diagnosis Comments DEVICE CHECK - REMOTE Routine 08/02/2025 TRANSTHORACIC ECHO (TTE) COMPLETE W DOPPLER/CF WO CONTRAST Routine 05/20/2025 2:34 PM DIRECTOR DENTAL SERVICES S/P TAVR (transcatheter aortic valve replacement) EGFR Routine 05/20/2025 1:37 PM DIRECTOR DENTAL SERVICES Aortic valve stenosis, etiology of cardiac valve disease unspecified SPARKS (dyspnea on exertion) Lower extremity edema BASIC METABOLIC PANEL Routine 05/20/2025 1:37 PM DIRECTOR DENTAL SERVICES Aortic valve stenosis, etiology of cardiac valve disease unspecified SPARKS (dyspnea on exertion) Lower extremity edema PRO B-TYPE NATRIURETIC PEPTIDE Routine 05/20/2025 1:37 PM DIRECTOR DENTAL SERVICES Aortic valve stenosis, etiology of cardiac valve disease unspecified SPARKS (dyspnea on exertion) Lower extremity edema DEVICE CHECK - IN OFFICE Routine 05/20/2025 12:43 PM DIRECTOR DENTAL SERVICES Fitting or adjustment of cardiac pacemaker CHB (complete heart block) from Last 3 Months Results * DEVICE CHECK - REMOTE (08/02/2025) Anatomical Region Laterality Modality Other 08/02/2025 08/02/2025 Narrative 08/03/2025 11:56 AM CDT Device Summary Remote interrogation Medtronic Dual Chamber Pacemaker Scheduled transmission Date of Implant: Dec 23, 2024 Programmed Mode: AAI<=>DDD Lower Rate: 60 bpm Device Functionality Presenting rhythm: AP/VS 60 with FFOS and PVCs Device: Normal function Estimated Battery Longevity: 14 years 2 months Leads: Appear stable Atrial pacin.9 % RV pacin.8 % Episodes Since 05/20/25: --576 AT/AF detections, max duration 14 min/33 sec, and AT/AF burden 1.6 %, with EGMs appearing to show FFOS. --No VHR episodes. Quyen Partida RN BSN Procedure Note Leslie Heath MD - 08/03/2025 Device Summary Remote interrogation Medtronic Dual Chamber Pacemaker Scheduled transmission Date of Implant: Dec 23, 2024 Programmed Mode: AAI<=>DDD Lower Rate: 60 bpm Device Functionality Presenting rhythm: AP/VS 60 with FFOS and PVCs Device: Normal function Estimated Battery Longevity: 14 years 2 months Leads: Appear stable Atrial pacin.9 % RV pacin.8 % Episodes Since 05/20/25: --576 AT/AF detections, max duration 14 min/33 sec, and AT/AF burden 1.6%, with EGMs appearing to show FFOS. --No VHR episodes. Quyen Partida RN BSN us Leslie Heath MD CV CARDIAC SERVI JEVON PROCEDURES Final Result * TRANSTHORACIC ECHO (TTE) COMPLETE W DOPPLER/CF WO CONTRAST (05/20/2025 2:34 PM DIRECTOR DENTAL SERVICES) EF Mod BP 70 % CONS SCIMAGE Anatomical Region Laterality Modality Ultrasound 05/20/2025 1:48 PM DIRECTOR DENTAL SERVICES Narrative 05/21/2025 10:07 AM DIRECTOR DENTAL SERVICES [facility] Cardiac Diagnostic Lab [address] [place] [address] Transthoracic Echocardiographic Report Patient Name: ERIK MICHEL W : 1945 (80y ) Sex: M Study Date: 05/20/2025 01:48:32 PM Ht(Inch): 74 Wt(Lb): 235.01 BSA: 2.33 Route Driver: WINNIE Location: [facility] Order Provider: BHARATH SNYDER Heart Rate: 60 BMI: 30.17 BP: 116 / 64 Ref Provider: BHARATH SNYDER PROCEDURES: Echocardiographic Report: Transthoracic complete echo with contrast, 2D, spectral and tissue Doppler, color flow Doppler, M-mode. Contrast: Contrast Enhancement was Employed: Due to suboptimal image quality with inadequate visualization of at least 2 of 16 LV wall segments in any view after initial imaging. Perflutren contrast was administered using the volume necessary to obtain adequate images and. 0.4 ml Optison Administered, (2.6 ml wasted). Technically difficult study due to: Poor acoustic windows. Limited visualization of some cardiac structures precludes the ability to obtain complete measurements - INDICATIONS: Z95.2 Presence of prosthetic heart valve. CONCLUSIONS: 1. A bioprosthetic stent-valve is present in the aortic position. The aortic prosthesis demonstrates normal transvalvular gradient for valve type and size. 2. Normal left ventricular cavity size based on volume index. Normal LV wall thickness. Normal left ventricular systolic function. The Ejection Fraction (Coley's) is measured at 70 %. Grade I diastolic dysfunction (normal LA pressure). 3. Normal right ventricular size. Normal right ventricular systolic function. 4. The estimated right ventricular systolic pressure is 25 mmHg. ATTESTATION: I have personally reviewed and interpreted this study without fellow or resident. DISCLAIMER: The study images and the final report will be retained in the patient chart by the Echo Laboratory for the legally required time period. This chart constitutes the legal record of any testing performed. FINDINGS: Left Ventricle: Normal left ventricular cavity size based on volume index. Normal LV wall thickness. Normal left ventricular systolic function. The Ejection Fraction (Coley's) is measured at 70 %. Grade I diastolic dysfunction (normal LA pressure). Right Ventricle: Normal right ventricular size. Normal right ventricular systolic function. Left Atrium: The left atrium is normal in size. Right Atrium: The right atrium is normal in size. Mitral Valve: Normal Mitral Valve Structure. Mitral valve leaflets appear moderately thickened. Moderate mitral annular calcification. The mitral valve area by pressure half-time is 2.2 cm2. The mean transmitral gradient is: 3 mmHg. Aortic Valve: The mean transaortic gradient is 11 mmHg. The aortic valve area by the continuity equation (using VTI) is 1.9 cm2. Aortic valve dimensionless index is 0.54. A bioprosthetic stent-valve is present in the aortic position. The aortic prosthesis demonstrates normal transvalvular gradient for valve type and size. Tricuspid Valve: Normal Tricuspid valve structure. Mild tricuspid regurgitation. The estimated right ventricular systolic pressure is 25 mmHg. Pulmonic Valve: Normal pulmonic valve structure. No pulmonic regurgitation. No pulmonic valve stenosis present. Pericardium: Normal pericardium without pericardial effusion. Aorta: The ascending aorta is normal in size when indexed. IVC: IVC is normal in size. PASP: Normal estimated pulmonary artery systolic pressure. Rhythm: Normal Sinus rhythm was seen during the study. MEASUREMENTS: 2D/MM Value Range Doppler Value Range LVIDd 2D 5.2 cm [ 4.2 - 5.8 ] AV Peak Conrado 2.3 m/s [ 1.0 - 1.7 ] LVIDs 2D 2.6 cm [ 2.5 - 4.0 ] AV Peak PG 21 mmHg IVSd 2D 1.1 cm [ 0.6 - 1.0 ] AV Mean PG 11 mmHg LVPWd 2D 1.1 cm [ 0.6 - 1.0 ] AV VTI 50 cm LV Thickness Ratio 1.0 LVOT Peak Conrado 1.2 m/s [ 0.7 - 1.1 ] LV FS 2D 50.83 % [ 25.00 - 43.00 ] LVOT Peak PG 6 mmHg LV Mass 2D 225.26 g LVOT Mean PG 3 mmHg LV Mass Index 2D 96.79 g/m2 LVOT VTI 27 cm RWT 0.42 LVOT Diam 2.1 cm EDV Mod BP 154 ml [ 62 - 150 ] STEPHANE VTI 1.9 cm2 LV EDV Index 66 ml/m2 LVOT/AV VTI 0.54 - Dimensionless index (DVI) ESV Mod BP 46 ml [ 21 - 61 ] MV E Peak Conrado 0.83 m/s [ 0.60 - 1.30 ] EF Mod BP 70 % [ 52 - 72 ] MV A Peak Conrado 1.38 m/s [ 1.00 - 1.20 ] LA Length 4C 5.8 cm MV E/A 0.6 ratio [ 0.8 - 1.5 ] LA Length 2C 6.3 cm MV Peak Conrado 1.5 m/s LA Volume BP 78 ml MV Peak PG 9 mmHg LA Volume Index 34 ml/m2 [ 16 - 34 ] MV Mean PG 3 mmHg RV Base Dimen 2D 3.9 cm [ 2.5 - 4.2 ] MV VTI 49 cm RV Mid Dimen 2D 2.6 cm MV PHT 99 msec [ 20 - 100 ] TAPSE 2.4 cm [ 1.7 - 5.0 ] MVA PHT 2.2 cm2 RA Volume 53 ml MV Decel [place] 248 RA Volume Index 23 ml/m2 MV Decel Time 336 msec [ 104 - 258 ] AoR Diam 2D 2.8 cm [ 3.1 - 3.7 ] Med E` Conrado 6.0 cm/sec [ 8.0 - 25.0 ] Ao Root Index 1.2 cm/m2 [ 1.0 - 2.0 ] Lat E` Conrado 7.4 cm/sec [ 10.0 - 25.0 ] Asc Ao Diam 2D 2.8 cm Average E/E` 12 Asc Ao Index 1.2 cm/m2 RV S` 15.7 cm/sec TR Peak Conrado 2.0 m/s [ 1.0 - 2.8 ] TR Peak PG 16 mmHg PV Peak Conrado 0.9 m/s [ 0.4 - 0.8 ] PV Peak PG 3 mmHg PI ED Conrado 1.0 m/s Electronically Signed By: Trevor Miranda MD 05/21/2025 10:06:58 AM DIRECTOR DENTAL SERVICES Procedure Note Trevor Miranda MD - 05/21/2025 [facility] Cardiac Diagnostic Lab [address], [address] [place] [address] Transthoracic Echocardiographic Report Patient Name: ERIK MICHEL W : 1945 (80y ) Sex: M Study Date: 05/20/2025 01:48:32 PM Ht(Inch): 74 Wt(Lb): 235.01 BSA: 2.33 Route Driver: WINNIE Location: [facility] Order Provider: BHARATH SNYDER Heart Rate: 60 BMI: 30.17 BP: 116 / 64 Ref Provider: BHARATH SNYDER PROCEDURES: Echocardiographic Report: Transthoracic complete echo with contrast, 2D,spectral and tissue Doppler, color flow Doppler, M-mode. Contrast: Contrast Enhancement was Employed: Due to suboptimal imagequality with inadequate visualization of at least 2 of 16 LV wall segments in any viewafter initial imaging. Perflutren contrast was administered using the volume necessaryto obtain adequate images and. 0.4 ml Optison Administered, (2.6 ml wasted). Technically difficult study due to: Poor acoustic windows. Limitedvisualization of some cardiac structures precludes the ability to obtain complete measurements - INDICATIONS: Z95.2 Presence of prosthetic heart valve. CONCLUSIONS: 1. A bioprosthetic stent-valve is present in the aortic position. Theaortic prosthesis demonstrates normal transvalvular gradient for valve type and size. 2. Normal left ventricular cavity size based on volume index. Normal LVwall thickness. Normal left ventricular systolic function. The Ejection Fraction(Coley's) is measured at 70 %. Grade I diastolic dysfunction (normal LA pressure). 3. Normal right ventricular size. Normal right ventricular systolicfunction. 4. The estimated right ventricular systolic pressure is 25 mmHg. ATTESTATION: I have personally reviewed and interpreted this study without fellow orresident. DISCLAIMER: The study images and the final report will be retained in the patientchart by the Echo Laboratory for the legally required time period. This chart constitutesthe legal record of any testing performed. FINDINGS: Left Ventricle: Normal left ventricular cavity size based on volume index.Normal LV wall thickness. Normal left ventricular systolic function. The EjectionFraction (Coley's) is measured at 70 %. Grade I diastolic dysfunction (normal LA pressure). Right Ventricle: Normal right ventricular size. Normal right ventricularsystolic function. Left Atrium: The left atrium is normal in size. Right Atrium: The right atrium is normal in size. Mitral Valve: Normal Mitral Valve Structure. Mitral valve leaflets appearmoderately thickened. Moderate mitral annular calcification. The mitral valve area bypressure half-time is 2.2 cm2. The mean transmitral gradient is: 3 mmHg. Aortic Valve: The mean transaortic gradient is 11 mmHg. The aortic valvearea by the continuity equation (using VTI) is 1.9 cm2. Aortic valve dimensionlessindex is 0.54. A bioprosthetic stent-valve is present in the aortic position. The aorticprosthesis demonstrates normal transvalvular gradient for valve type and size. Tricuspid Valve: Normal Tricuspid valve structure. Mild tricuspidregurgitation. The estimated right ventricular systolic pressure is 25 mmHg. Pulmonic Valve: Normal pulmonic valve structure. No pulmonicregurgitation. No pulmonic valve stenosis present. Pericardium: Normal pericardium without pericardial effusion. Aorta: The ascending aorta is normal in size when indexed. IVC: IVC is normal in size. PASP: Normal estimated pulmonary artery systolic pressure. Rhythm: Normal Sinus rhythm was seen during the study. MEASUREMENTS: 2D/MM Value Range DopplerValue Range LVIDd 2D 5.2 cm [ 4.2 - 5.8 ] AV Peak Vel2.3 m/s [ 1.0 - 1.7 ] LVIDs 2D 2.6 cm [ 2.5 - 4.0 ] AV Peak PG21 mmHg IVSd 2D 1.1 cm [ 0.6 - 1.0 ] AV Mean PG11 mmHg LVPWd 2D 1.1 cm [ 0.6 - 1.0 ] AV VTI50 cm LV Thickness Ratio 1.0 LVOT Peak Vel1.2 m/s [ 0.7 - 1.1 ] LV FS 2D 50.83 % [ 25.00 - 43.00 ] LVOT Peak PG6 mmHg LV Mass 2D 225.26 g LVOT Mean PG3 mmHg LV Mass Index 2D 96.79 g/m2 LVOT VTI27 cm RWT 0.42 LVOT Diam2.1 cm EDV Mod BP 154 ml [ 62 - 150 ] STEPHANE VTI1.9 cm2 LV EDV Index 66 ml/m2 LVOT/AV VTI0.54 - Dimensionless index (DVI) ESV Mod BP 46 ml [ 21 - 61 ] MV E Peak Vel0.83 m/s [ 0.60 - 1.30 ] EF Mod BP 70 % [ 52 - 72 ] MV A Peak Vel1.38 m/s [ 1.00 - 1.20 ] LA Length 4C 5.8 cm MV E/A0.6 ratio [ 0.8 - 1.5 ] LA Length 2C 6.3 cm MV Peak Vel1.5 m/s LA Volume BP 78 ml MV Peak PG9 mmHg LA Volume Index 34 ml/m2 [ 16 - 34 ] MV Mean PG3 mmHg RV Base Dimen 2D 3.9 cm [ 2.5 - 4.2 ] MV VTI49 cm RV Mid Dimen 2D 2.6 cm MV PHT99 msec [ 20 - 100 ] TAPSE 2.4 cm [ 1.7 - 5.0 ] MVA PHT2.2 cm2 RA Volume 53 ml MV Decel [id number] RA Volume Index 23 ml/m2 MV Decel [id number] msec [ 104 - 258 ] AoR Diam 2D 2.8 cm [ 3.1 - 3.7 ] Med E` Vel6.0 cm/sec [ 8.0 - 25.0 ] Ao Root Index 1.2 cm/m2 [ 1.0 - 2.0 ] Lat E` Vel7.4 cm/sec [ 10.0 - 25.0 ] Asc Ao Diam 2D 2.8 cm Average E/E`12 Asc Ao Index 1.2 cm/m2 RV S`15.7 cm/sec TR Peak Conrado 2.0 m/s [ 1.0 - 2.8 ] TR Peak PG 16 mmHg PV Peak Conrado 0.9 m/s [ 0.4 - 0.8 ] PV Peak PG 3 mmHg PI ED Conrado 1.0 m/s Electronically Signed By: Trevor Miranda MD 05/21/2025 10:06:58 AM DIRECTOR DENTAL SERVICES us Bharath Snyder MD CV ECHO PROCEDURES Final Res ult * eGFR (05/20/2025 1:37 PM DIRECTOR DENTAL SERVICES) eGFR 89 >=60 mL/min/1. 73 m2 Comment: Interpretive Data Reference Interval Normal >/= 90 mL/min/1.73m2 Mildly decreased* 60 - 89 mL/min/1.73m2 Mildly to moderately decreased 45 - 59 mL/min/1.73m2 Moderately to severely decreased 30 - 44 mL/min/1.73m2 Severely decreased 15 - 29 mL/min/1.73m2 Kidney Failure < 15 mL/min/1.73m2 *Relative to young adult level Estimated glomerular filtration rate is determined by the 2020 CKD-EPI equation recommended by the National Kidney Foundation (A Unifying Approach to GFR Estimation: Recommendations of the NKF-ASK Task Force on Reassessing the Inclusion of Race in Diagnosing Kidney Disease, JASN 2020). The CKD-EPI equation should not be used for patients with unstable renal function and has not been validated in children and those over 70. Current interpretive data was last reviewed 2021. Blood 05/20/2025 1:37 PM DIRECTOR DENTAL SERVICES 05/20/2025 3:09 PM DIRECTOR DENTAL SERVICES us Areli Arboleda NP LAB BLOOD ORDERABLES Li dc Result [facility] [address] [facility]. [place] [address] * Pro B-type natriuretic peptide (05/20/2025 1:37 PM DIRECTOR DENTAL SERVICES) NT-proBNP 247 <=450 pg/mL Comment: Interpretive Comments: A. Dyspnea in Acute Care Setting All Ages: < 300 pg/ml, acute heart failure unlikely. < 50 yrs: 300 - 450 pg/ml, further investigation warranted. > 450 pg/ml, acute heart failure likely. 50 - 74 yrs: 300 - 900 pg/ml, further investigation warranted. > 900 pg/ml, acute heart failure likely . > or = 75 yrs: 450 - 1800 pg/ml, further investigation warranted. > 1800 pg/ml, acute heart failure likely. B. Non-acute Setting < 75 yrs < 125 pg/ml, rules out heart failure. > or = 125 pg/ml, further investigation warranted. > or = 75 yrs < 450 pg/ml, rules out heart failure. > or = 450 pg/ml, further investigation warranted. - Knowledge of each individual patient's NT-proBNP range may be more useful than using similar cut-points for every patient. Please note that marked elevations in NT-proBNP levels may be observed in state other than Left Ventricular Congestive Failure, including: acute coronary syndromes, right heart strain/failure (including pulmonary embolism and cor pulmonale), critical illness, renal failure, as well as advanced age. - References: 1. Eneida SUERO et.al. Eur Heart J. 2006:27:330-337. Abhilash RW, Kvng GIRON. J. AM Penny Cardiol: Cardiovasc Imag. 2009;2: 216-225. Blood 05/20/2025 1:37 PM DIRECTOR DENTAL SERVICES 05/20/2025 3:09 PM DIRECTOR DENTAL SERVICES us Areli Arboleda NP LAB BLOOD ORDERABLES Li dc Result [facility] [address] [facility]. [place] [address] * Basic metabolic panel (05/20/2025 1:37 PM DIRECTOR DENTAL SERVICES) Sodium 139 135 - 145 mmol/L Potassium, pl 4.3 3.3 - 4.9 mmol/L [facility] Chloride 103 97 - 110 mmol/L [facility] CO2 27 22 - 32 mmol/L [facility] Anion gap 9 2 - 15 mmol/L [facility] BUN 14 6 - 25 mg/dL [facility] Creatinine 0.85 0.80 - 1.30 mg/dL [facility] Glucose 96 70 - 199 mg/dL [facility] Comment: Interpretive Data Fasting glucose >/= 126 mg/dl is diagnostic for diabetes. Fasting is defined as no caloric intake for at least 8 hours. Fasting glucose between 100 mg/dl to 125 mg/dl is diagnostic of prediabetes. In a patient with classic symptoms of hyperglycemia or hyperglycemic crisis, a random glucose >/= 200 mg/dl is diagnostic for diabetes. In the absence of unequivocal hyperglycemia, results should be confirmed by repeat testing. The classification and Diagnosis of Diabetes Diabetes Care 2022; 46: S19-S40. Calcium 9.5 8.5 - 10.3 mg/dL [facility] Blood 05/20/2025 1:37 PM DIRECTOR DENTAL SERVICES 05/20/2025 3:09 PM DIRECTOR DENTAL SERVICES us Areli Arboleda NP LAB BLOOD ORDERABLES Li dc Result [facility] [address] [facility] [place] [address] * DEVICE CHECK - IN OFFICE (05/20/2025 12:43 PM DIRECTOR DENTAL SERVICES) Anatomical Region Laterality Modality Other 05/20/2025 05/20/2025 Narrative 05/26/2025 1:28 PM DIRECTOR DENTAL SERVICES 80 y.o. F with a h/o CHB and a dual chamber Medtronic Pacemaker is seen In-clinic for interrogation of pacemaker and OV with Areli Arboleda NP. Incision Site: Left pectoral site without inflammation or adherence Device Functionality Device: Normal function Lead trends: Appear stable Estimated battery longevity: 14 years 4 months Atrial pacin.99% RV pacin.77% Interrogation Presenting rhythm:AP/VS Underlying rhythm: B upper 50s Episodes since 01/15/25: 912 AT/AF detections - EGMs suggest far-field oversensing on the Atrial channel and 1 Fast A&V detections - suggests ST 150s 1:1 rhythm. Programming Changes: none, Plan: Pt to return to clinic as directed by Areli Arboleda NP and will continue remote monitoring with [employer]. Jose Alberto Turpin RN, BSN Procedure Note Leslie Heath MD - 05/26/2025 80 y.o. F with a h/o CHB and a dual chamber Medtronic Pacemaker is seen In-clinic for interrogation of pacemaker and OV with Areli Arboleda NP. Incision Site: Left pectoral site without inflammation or adherence Device Functionality Device: Normal function Lead trends: Appear stable Estimated battery longevity: 14 years 4 months Atrial pacin.99% RV pacin.77% Interrogation Presenting rhythm:AP/VS Underlying rhythm: B upper 50s Episodes since 01/15/25: 912 AT/AF detections - EGMs suggest far-fieldoversensing on the Atrial channel and 1 Fast A&V detections - suggests [id number] 1:1 rhythm. Programming Changes: none, Plan: Pt to return to clinic as directed by Areli Arboleda NP and willcontinue remote monitoring with [employer]. Jose Alberto Turpin, RN, BSN Leslie Heath MD CV CARDIAC SERVI JEVON PROCEDURES Final Result from Last 3 Months Insurance MEDICARE ADVANTAGE MDCR HMO REF [facility] MEDICARE ADVANTAGE [facility] MEDICARE ADVANTAGE Advance Directives For more information, please contact: [phone] * Full Code (Latest Code Status on File) Date Activated Date Inactivated Comments 12/21/2024 10:53 AM 12/25/2024 8:12 PM * Full Code Date Activated Date Inactivated Comments 12/21/2024 10:52 AM 12/21/2024 10:53 AM * Full Code Date Activated Date Inactivated Comments 12/21/2024 10:50 AM 12/21/2024 10:52 AM * Full Code Date Activated Date Inactivated Comments 12/10/2024 9:55 AM 12/11/2024 12:30 AM * Full Code Date Activated Date Inactivated Comments 02/24/2024 1:43 PM 02/24/2024 11:16 PM Care Teams Car Dealer Relationship Specialty Start Date End Date Raysa Yuan MD [address] [place] [address] [address] [address] [place] [address] PCP - General Family Practice 03/12/23 Sourav Davis MD [address] [place] [address] Consulting Physician Cardiology 11/16/24 Elvira Vargas MD [address] [facility] 8233[address]09[address]04 [place] [address] Surgeon Cardiothoracic Surgery 12/25/24 Bharath Snyder MD [address] [place] [address] Consulting Physician Cardiology 12/25/24 Miscellaneous, Not In File 12/25/24
--- OUTSIDE RECORDS SUMMARY | 2025-08-17 15:25 | XMS_ITS | Encounter Summary ---
Author Organization [facility] Address [address] [facility] [address] [place] [address] Phone Care Team Providers Care Umbrella Supervisor Name Role Phone Raysa Yuan MD Primary Care Provider Sourav Davis MD Unavailable [phone] Elvira Vargas MD Unavailable Bharath Rivers MD Unavailable [phone] Miscellaneous, Not In File Unavailable Unava ilable Encounter Details Date Type Department Care Team (Late st Contact Info) Description 01/19/2021 Telephone [facility] Medicine Cardiology [address] [facility] Medical Office Building [address] [place] [address] Marleny Butt Social History Tobacco [...] on file 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 [address] [place] [address] PCP - General Family Practice 03/12/23 Sourav Davis MD [address] [place] [address] Consulting Physician Cardiology 11/16/24 Elvira Vargas MD [address] [facility] 8233-09-04 [place] [address] Surgeon Cardiothoracic Surgery 12/25/24 Bharath Rivers MD [address] [facility] [address] [place] [address] Consulting Physician Cardiology 12/25/24 Miscellaneous, Not In File 12/25/24 documented as of this encounter
--- OUTSIDE RECORDS SUMMARY | 2025-08-17 15:25 | XMS_ITS | Encounter Summary ---
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 Gender Identity Not on file Sexual Orientation Not on file documented as of this encounter Plan of Treatment Not on file documented as of this encounter Procedures Procedure Name Priority Date/Time Associated Diagnosis Comments SCAN - LABS 02/14/2023 documented in this encounter Results * SCAN - LABS (02/14/2023) Provider Scanning Final Result documented in this encounter Visit Diagnoses Not on filedocumented in this encounter Care Teams Equity Holder Relationship Specialty Start Date End Date Raysa Yuan MD [address] [facility] [address] [place] [address] PCP - General Family Practice 03/12/23 Sourav Davis MD [address] [place] [address] Consulting Physician Cardiology 11/16/24 Elvira Vargas MD [address] [facility] 8233[address]09-04 [place] [address] Surgeon Cardiothoracic Surgery 12/25/24 Bharath Rivers MD [address] [facility] [address] [place] [address] Consulting Physician Cardiology 12/25/24 Miscellaneous, Not In File 12/25/24 documented as of this encounter
--- OUTSIDE RECORDS SUMMARY | 2025-08-17 15:25 | XMS_ITS | Encounter Summary ---
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 Gender Identity Not on file Sexual Orientation Not on file documented as of this encounter Plan of Treatment Not on file documented as of this encounter Procedures Procedure Name Priority Date/Time Associated Diagnosis Comments SCAN - LABS 08/17/2022 documented in this encounter Results * SCAN - LABS (08/17/2022) Provider Scanning Final Result documented in this encounter Visit Diagnoses Not on filedocumented in this encounter Care Teams Finance Attorney Relationship Specialty Start Date End Date Raysa Yuan MD [address] [facility] [address] [place] [address] PCP - General Family Practice 03/12/23 Sourav Davis MD [address] [place] [address] Consulting Physician Cardiology 11/16/24 Elvira Vargas MD [address] [facility] 8233[address]09-04 [place] [address] Surgeon Cardiothoracic Surgery 12/25/24 Bharath Rivers MD [address] [facility] [address] [place] [address] Consulting Physician Cardiology 12/25/24 Miscellaneous, Not In File 12/25/24 documented as of this encounter
--- OUTSIDE RECORDS SUMMARY | 2025-08-17 15:25 | XMS_ITS | Clinical Summary ---
Author Organization [facility] Address [address] [place] [address] Care Team Providers Care Plasterer Foreman Name Role Phone Raysa Yuan MD Primary Care Provider Allergies No known active allergies Medications atorvastatin 80 MG tablet Take 80 mg by mouth daily. 1 02/04/2019 Active clopidogrel 75 MG tablet Take 75 mg by mouth daily. 3 01/07/2019 Active isosorbide mononitrate ER 60 MG 24 hr tablet Take 60 mg by mouth daily. 1 01/07/2019 Active lisinopril 5 MG tablet Take 5 mg by mouth daily. 1 02/04/2019 Active Family History Medical History Relation Comments Emphysema Father Cancer Maternal Aunt Stroke Mother Relation Status Comments Father Maternal Aunt Mother Social History Tobacco Use Types Packs/Day Years Used Date Smoking Tobacco: Some Days Cigars Smokeless Tobacco: Never Comments:rarely Sex and Gender Information Value Date Recorded Sex Assigned at Not on file Legal Sex Male 8:35 PM CDT Gender Identity Not on file Sexual Orientation Not on file Last Filed Vital Signs Vital Sign Reading Time Taken Comments Blood Pressure 126/61 03/17/2019 10:31 AM PERSONAL PROPERTY APPRAISER Pulse 79 03/17/2019 9:35 AM PERSONAL PROPERTY APPRAISER Temperature 37.2 C (98.9 F) 03/17/2019 9:35 AM PERSONAL PROPERTY APPRAISER Respiratory Rate 16 03/17/2019 9:35 AM PERSONAL PROPERTY APPRAISER Oxygen Saturation 92% 03/17/2019 10:31 AM PERSONAL PROPERTY APPRAISER Inhaled Oxygen Concentration - - Weight 117.9 kg (260 lb) 03/17/2019 9:35 AM PERSONAL PROPERTY APPRAISER Height 190.5 cm (6' 3) 03/17/2019 9:35 AM PERSONAL PROPERTY APPRAISER Body Mass Index 32.5 03/17/2019 9:35 AM PERSONAL PROPERTY APPRAISER Plan of Treatment Health Maintenance Due Date Last Done Comments Annual Medicare Wellness Visit 1945 Hepatitis C 1963 Zoster Vaccines (1 of 2) 1997 RSV Immunization or 60+ Years (1 - 1-dose 75+ series) 2022 DTaP, Tdap and Td Vaccines ( 2 - Td or Tdap) 05/04/2024 05/04/2014 COVID-19 Vaccine (2 - 2024-2 6 season) 2025 09/14/2020 Pneumococcal Vaccine: 50+ Years Completed 08/29/2023, 05/04/2014 Hepatitis A Vaccines Aged Out No long er eligible based on patient's age to complete this topic Meningococcal B Vaccine Aged Out No l onger eligible based on patient's age to complete this topic Meningococcal Vaccine Aged Out No maribel gonsalo eligible based on patient's age to complete this topic RSV Immunizations Under 20 Months Aged Out No longer eligible b ased on patient's age to complete this topic Insurance [employer] MEDICARE Member Subscriber Plan / Payer (Ef fective 2013-Present) Name:Reed Michel Relation to Subscriber:Self Name:Anand Reed Wa Payer ID:Not on file Group ID:Not on file Type:Indemnity Address: [place] [phone] [employer] MEDICARE Care Teams Plasterer Foreman Relationship Specialty Start Date End Date Raysa Yuan MD [address] [facility] [address] [place] [address] PCP - General FAMILY PRACTICE 12/04/23
--- OUTSIDE RECORDS SUMMARY | 2025-08-17 15:25 | XMS_ITS | Encounter Summary ---
Author Organization [facility] Address [address] [place] [address] Phone Care Team Providers Care Order Picker/Assembler Name Role Phone Raysa Yuan MD Primary Care Provider Sourav Davis MD Unavailable [phone] Elvira Vargas MD Unavailable Bharath Rivers MD Unavailable [phone] Miscellaneous, Not In File Unavailable Unava ilable Reason for Referral * MRI/CAT/PET Scan (Routine) - Closed Specialty Diagnoses / Procedures Referred By Conterasmo t Referred To Contact Radiology Diagnoses Prostate cancer (HCC) Procedures MRI PELVIS PROSTATE W WO CONTRAST Jhony Kam MD [address] [address] Phone: tel: fax: [address] [address] Referral ID Status Reason Start Date Expiration Date Visits Re quested Visits Authorized [id number] Closed 09/10/2024 10/10/2025 1 1 Encounter Details Date Type Department Care Team (Late st Contact Info) Description 09/10/[address] 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 Patient is not sure if he received a positive diagnosis for prostate cancer, states he is borderline. No known symptoms. Patient did enema prep prior to MRI study. PSA 8.09 on 12/04/2023 TECHNIQUE: MRI of the pelvis performed without and with intravenous contrast according to the prostate protocol. All images stored on PACS. CONTRAST TYPE/DOSE: 20mL of GADOTERATE MEGLUMINE 0.5 MMOL/ML INTRAVENOUS SOLUTION (SO) injected via intravenous COMPARISON: None. FINDINGS: Markedly degraded diffusion-weighted imaging. No comparison examination is available at time of this dictation. Findings made within these confines. PROSTATE GLAND: SIZE: Size: 5.4 x 4.6 x 6.3 cm Volume: 81.94 mL Serum PSA: 8.09 ng/mL PSA density: 0.10 ng/mL? PERIPHERAL ZONE: No T1 hyperintensity within the peripheral zone. Diffuse T2 hypointense signal throughout the peripheral zone with associated mild diffusion restriction and enhancement is favored to reflect sequela of inflammation. However, a large infiltrative peripheral zone lesion can not be definitively excluded but is considered less likely given low PSA density and lack of focal discrete lesion. No PI-RADS 3-5 lesions. CENTRAL GLAND: Moderate BPH changes. Scattered T1 hyperintense signal could reflect blood products from prior biopsy. No PI-RADS 3-5 lesions. SEMINAL VESICLES: Normal. NEUROVASCULAR BUNDLE: Unremarkable. LYMPH NODES: No pathologically enlarged lymph nodes. VESSELS: Atherosclerotic changes. However vessels are grossly patent. BLADDER: Normal. GASTROINTESTINAL: Colonic diverticulosis without acute inflammation. BONES/SOFT TISSUES: Small right fat containing inguinal hernia. No aggressive appearing enhancing osseous lesions. OTHER: No other significant finding. IMPRESSION: 1. Diffuse T2 hypointense signal throughout the peripheral zone with associated mild diffusion restriction and enhancement is favored to reflect sequela of inflammation. However, a large infiltrative peripheral zone lesion can not be definitively excluded but is considered less likely given low PSA density and lack of focal discrete lesion. Correlate with prior outside imaging if available. Otherwise, consider attention on follow-up as clinically appropriate. 2. No pathologically enlarged pelvic lymphadenopathy. 3. T1 hyperintense signal within the transition zone could reflect blood products. Correlate with history of prior biopsy. 4. Moderate BPH changes. 5. Colonic diverticulosis without acute inflammation THIS IS AN ELECTRONICALLY VERIFIED FINAL REPORT 11/19/2024 11:29 AM - Electronically signed by Malcolm Ortiz M.D. NS: NS Report ID: [id number] Reading Location: [id number] Procedure Note Malcolm Ortiz MD - 11/19/2024 EXAM DESCRIPTION: MRI PELVIS PROSTATE W WO CONTRAST REASON FOR STUDY: Prostate cancer, intermediate risk, activesurveillance Patient reports monitoring prostate. Patient is not sure if he received a positive diagnosis for prostate cancer, states he is borderline. Noknown symptoms. Patient did enema prep prior to MRI study. PSA 8.09 on12/04/2023 TECHNIQUE: MRI of the pelvis performed without and with intravenous contrast according to the prostate protocol. All images stored on PACS. CONTRAST TYPE/DOSE: 20mL of GADOTERATE MEGLUMINE 0.5 MMOL/ML INTRAVENOUS SOLUTION (SO) injected via intravenous COMPARISON: None. FINDINGS: Markedly degraded diffusion-weighted imaging. No comparison examination is available at time of this dictation. Findings made within these confines. PROSTATE GLAND: SIZE: Size: 5.4 x 4.6 x 6.3 cm Volume: 81.94 mL Serum PSA: 8.09 ng/mL PSA density: 0.10 ng/mL? PERIPHERAL ZONE: No T1 hyperintensity within the peripheral zone. Diffuse T2 hypointense signal throughout the peripheral zone withassociated mild diffusion restriction and enhancement is favored to reflect sequelaof inflammation. However, a large infiltrative peripheral zone lesion cannot be definitively excluded but is considered less likely given low PSA densityand lack of focal discrete lesion. No PI-RADS 3-5 lesions. CENTRAL GLAND: Moderate BPH changes. Scattered T1 hyperintense signal could reflect blood products from prior biopsy. No PI-RADS 3-5 lesions. SEMINAL VESICLES: Normal. NEUROVASCULAR BUNDLE: Unremarkable. LYMPH NODES: No pathologically enlarged lymph nodes. VESSELS: Atherosclerotic changes. However vessels are grossly patent. BLADDER: Normal. GASTROINTESTINAL: Colonic diverticulosis without acute inflammation. BONES/SOFT TISSUES: Small right fat containing inguinal hernia. No aggressive appearing enhancing osseous lesions. OTHER: No other significant finding. IMPRESSION: 1. Diffuse T2 hypointense signal throughout the peripheral zone with associated mild diffusion restriction and enhancement is favored toreflect sequela of inflammation. However, a large infiltrative peripheral zonelesion can not be definitively excluded but is considered less likely given lowPSA density and lack of focal discrete lesion. Correlate with prior outside imaging if available. Otherwise, consider attention on follow-up as clinically appropriate. 2. No pathologically enlarged pelvic lymphadenopathy. 3. T1 hyperintense signal within the transition zone could reflect blood products. Correlate with history of prior biopsy. 4. Moderate BPH changes. 5. Colonic diverticulosis without acute inflammation THIS IS AN ELECTRONICALLY VERIFIED FINAL REPORT 11/19/2024 11:29 AM - Electronically signed by Malcolm Ortiz M.D. NS: NS Report ID: [id number] Reading Location: [id number] Jhony Kam MD IMG MRI PROCEDURES Final Re sult documented in this encounter Visit Diagnoses Diagnosis Prostate cancer (HCC)- Primary Malignant neoplasm of prostate Prostate cancer (HCC) Malignant neoplasm of prostate documented in this encounter Care Teams Order Picker/Assembler Relationship Specialty Start Date End Date Raysa Yuan MD [address] [facility] [address] [place] [address] PCP - General Family Practice 03/12/23 Sourav Davis MD [address] [place] [address] Consulting Physician Cardiology 11/16/24 Elvira Vargas MD [address] [facility] [place] [id number] [place] [address] Surgeon Cardiothoracic Surgery 12/25/24 Bharath Rivers MD [address] [facility] [address] [place] [address] Consulting Physician Cardiology 12/25/24 Miscellaneous, Not In File 12/25/24 documented as of this encounter
--- OUTSIDE RECORDS SUMMARY | 2025-08-17 15:25 | XMS_ITS | Encounter Summary ---
Author Organization [facility] Address [address] [place] [address] Phone Care Team Providers Care Ocular Care Technologist Name Role Phone No, Physician Primary Care Provider [phone] Raysa Yuan MD Primary Care Provider Sourav Davis MD Unavailable [phone] Elvira Vargas MD Unavailable Bharath Rivers MD Unavailable [phone] Miscellaneous, Not In File Unavailable Unava ilable Encounter Details Date Type Department Care Team (Late st Contact Info) Description 12/08/2018 Telephone [facility] [address] [facility] [address]th [place] [address] [place] [address] Tony Lobo MD [address] [place] [address] Social History Tobacco Use Types Packs/Day Years Used Date Smoking Tobacco: Former Smokeless Tobacco: Never Sex and Gender Information Value Date Recorded Sex Assigned at Not on file 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 Gender Identity Not on file Sexual Orientation [...] documented as of this encounter Care Teams Ocular Care Technologist Relationship Specialty Start Date End Date No, Physician PCP - General 06/27/18 06/24/19 Raysa Yuan MD [address] [address] PCP - General Family Practice 03/12/23 Sourav Davis MD [address] [place] [address] Consulting Physician Cardiology 11/16/24 Elvira Vargas MD [address] [facility] [id number] [place] [address] Surgeon Cardiothoracic Surgery 12/25/24 Bharath Rivers MD [address] [facility] [address] [place] [address] Consulting Physician Cardiology 12/25/24 Miscellaneous, Not In File 12/25/24 documented as of this encounter
== END 2024-09-17 07:01 | disposition home or self-care (01) ==
PROVIDERS: PCP Family Medicine; Visit Provider Plastic Surgery
DX: C44.91 Basal cell carcinoma of skin, unspecified (principal); L72.11 Pilar cyst
CPT/HCPCS: 88305

== ENCOUNTER 2024-09-18 09:18 | Outpatient (CLI) | payer MEDICARE, SELFPAY ==
--- NOTE | ~2024-09-18 | XR_ITS ---
AP and oblique views of the right ribs, and PA and lateral chest radiographs Clinical History: Pain Findings: No rib fracture is seen. Osseous alignment is anatomic. Lungs are clear, without focal cons olidation or pleural effusion. Cardiomediastinal contour is within normal limits. Soft tissues are un remarkable. Impression: No rib fracture is seen. Clear lungs. Reviewed, dictated and finalized at location . Impression: No rib fracture is seen. Clear lungs.
== END 2024-09-18 09:19 | disposition home or self-care (01) ==
LOC: GOSHIMG 09:18
PROVIDERS: PCP Family Medicine; Visit Provider Family Medicine
DX: R07.81 Pleurodynia (principal)
CPT/HCPCS: 71046; 71100

== ENCOUNTER 2024-09-24 09:23 | Outpatient (CLI) | payer MEDICARE, SELFPAY ==
--- OUTSIDE RECORDS SUMMARY | 2024-09-24 09:28 | XMS_ITS | Encounter Summary ---
Author Organization [facility] Address [address] [place] [address] Phone Care Team Providers Care Miniature Set Designer Name Role Phone Raysa Yuan MD Primary Care Provider Encounter Details Date Type Department Care Team (Latest Contact Info) Description 02/14/2023 Orders Only [facility] Scanning, Provider Social History Tobacco Use Types Packs/Day Years Used Date Smoking Tobacco: Never Smokeless Tobacco: Never Alcohol Use Standard Drinks/Week Comments Defer 0 (1 standard drink = 0.6 oz pur e alcohol) AUDIT-C Answer Date Recorded Q1: How often do you have a drink containing alc ohol? 2-4 times a month 10/26/2021 Q2: How many drinks containi ng alcohol do you have on a typical day when you are drinking? 1 or 2 10/26/2021 Q3: How often do you have si x or more drinks on one occasion? 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 [address] [place] [address] PCP - General Family Practice 03/12/23 documented as of this encounter
--- OUTSIDE RECORDS SUMMARY | 2024-09-24 09:28 | XMS_ITS | Encounter Summary ---
Author Organization [facility] Address [address] [place] [address] Phone Care Team Providers Care Rpg Programmer Name Role Phone No, Physician Primary Care Provider [phone] Raysa Yuan MD Primary Care Provider Encounter Details Date Type Department Care Team (Late st Contact Info) Description 12/08/2018 Telephone [facility] Cardiology [address] [facility] 8th [place] [address] [place] [address] Tony Lobo MD [address] [place], [place] [id number] Social History Tobacco Use Types Packs/Day Years Used Date Smoking Tobacco: Former Smokeless Tobacco: Never Sex and Gender Information Value Date Recorded Sex Assigned at Not on file 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 02/15/2020 02/17/2020 06/14/2020 3:[address] documented as of this encounter Care Teams Rpg Programmer Relationship Specialty Start Date End Date No, Physician PCP - General 06/27/18 06/24/19 Raysa Yuan MD [address] [facility] [address] [address] PCP - General Family Practice 03/12/23 documented as of this encounter
--- OUTSIDE RECORDS SUMMARY | 2024-09-24 09:28 | XMS_ITS | Encounter Summary ---
Author Organization [facility] Address [address] [place] [address] Phone Care Team Providers Care Relief Man Name Role Phone Raysa Yuan MD Primary Care Provider Encounter Details Date Type Department Care Team (Late st Contact Info) Description 01/19/2021 Telephone [facility] Cardiology [facility] Medical Office Building [address] [place] [address] Marleny Butt Social History Tobacco Use Types Packs/Day Years Used Date Smoking Tobacco: Never Smokeless Tobacco: Never Alcohol Use Standard Drinks/Week Comments Defer 0 (1 standard drink = 0.6 oz pur e alcohol) AUDIT-C Answer Date Recorded Q1: How often do you have a drink containing alc ohol? 2-4 times a month 01/05/2021 Q2: How many drinks containi ng alcohol do you have on a typical day when you are drinking? 3 or 4 01/05/2021 Q3: How often do you have si x or more drinks on one occasion? 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
--- OUTSIDE RECORDS SUMMARY | 2024-09-24 09:28 | XMS_ITS | Clinical Summary ---
Author Organization [facility] Address [address] [place] [id number] Care Team Providers Care Hemodialysis Rn Name Role Phone Raysa Yuan MD Primary Care Provider Allergies No known active allergies Medications acetaminophen (TYLENOL) 325 mg tablet TAKE 1 TO 2 TABLETS EVERY 6 HOURS NEEDED. 05/14/2016 Active aspirin 81 mg tablet 1 tablet (81 mg total) daily 05/14/2016 Active cyanocobalamin (Vitamin B-12) 2,500 mcg tablet, sublingualIndica tions:Prevention of Vitamin B12 Deficiency daily Active lisinopriL (PRINIVIL,ZESTRI L) 5 mg tablet TAKE 1 TABLET(5 MG) BY MOUTH DAILY 90 tablet 3 10/25/2023 Active clopidogreL (PLAVIX) 75 mg tablet Take 1 tablet (75 mg total) by mouth daily 90 tablet 3 05/18/2024 05/18/19 26 Active isosorbide mononitrate ER (IMDUR) 120 mg 24 hr tablet TAKE 1 TABLET(120 MG) BY MOUTH DAILY 90 tablet 3 05/18/2024 Active atorvastatin (LIPITOR) 80 mg tablet Take 1 tablet (80 mg total) by mouth daily 90 tablet 3 08/12/2024 Active metoprolol XL (TOPROL-XL) 25 mg extended release tablet Take 1 tablet (25 mg total) by mouth daily 90 tablet 3 08/14/2024 Active Active Problems Problem Noted Date Diagnosed Date Moderate aortic stenosis 01/28/2024 Fatigue 02/01/2020 Assessment & Plan (02/01/2020 11:28 AM CDT): Pt/family report several weeks of fatigue, SPARKS. Covid could explain this- maybe not the whole timeframe but duration of his illness is unknown. All we can say is his covid swab is + on 01/30. Would re-evaluate this symptoms after his 10 day quarantine. Check TSH. COVID-19 02/01/2020 Assessment & Plan (02/01/2020 11:29 AM CDT): + on 01/30 Currently no dyspnea Has has a few weeks of fatigue and SPARKS; unclear what the relationship is. Will complete 10 day quarantine at home. CAD (coronary artery disease) 01/31/2020 Assessment & Plan (01/19/2021 1:34 PM CDT): Symptoms are consistent with unstable angina, resolving with rest however progressive and significantly limiting. Unfortunately he has had no improvement following LCX PCI. Beta-sarah dose limited by HR. Increase Imdur to 120 mg daily and refer for staged PCI to his LAD. Continue DAPT and statin. Encouraged nitroglycerin if symptoms last longer than 5 minutes with rest. Check labs and obtain updated Echocardiogram. Assessment & Plan (02/01/2020 11:26 AM CDT): Cont asa 81 and statin Previously on BB, stopped for bradycardia He reports 1 month of fatigue, sparks, and random stabbing chest pain without exertional component. Family reported he had similar constitutional symptoms prior to last LHC and PCI. EKG with RBBB. Trop neg x4. NT Pro BNP wnl. No orthopnea or LE swelling. CMU since admit wnl. Vitals stable. Can try slntg prn for chest pain F/u with [facility] [employer]- re evaluate symptoms after covid isolation complete. Consider ischemic evaluation. Assessment & Plan (01/31/2020 4:20 PM CDT): Hx CAD s/p PCI of LAD and diagonal [place] [address] Alin Patel, presented to ED with 1 month of chest pain and SOB, his chest pain is not associated with activity or position, it occurs randomly, he was brought in by his daughter who states that the patient has been declining for a few weeks now (he has lost weight and is more fatigued), also of note, his brother recently -Followed outpatient by Dr. Tony Lobo, Plavix was discontinued at his last appointment (06/29/19) -EKG in ED without acute change -Troponins negative x 4 -Small lung volumes on CXR, otherwise unremarkable -NT-proBNP 56 -Continue ASA 81 mg daily, Atorvastatin 80 mg daily and Imdur 60 mg daily -PRN SL Nitroglycerin for chest pain HLD (hyperlipidemia) 01/31/2020 Assessment & Plan (01/19/2021 1:33 PM CDT): Continue atorvastatin 80 mg. Assessment & Plan (02/01/2020 11:12 AM CDT): Cont statin Assessment & Plan (01/31/2020 4:17 PM CDT): Continue Atorvastatin 80 mg daily Check lipid panel with AM labs ANIAK (hard of hearing) 01/31/2020 Assessment & Plan (01/31/2020 4:20 PM CDT): Pt is hard of hearing Hypertension 12/24/2017 Assessment & Plan (01/19/2021 1:33 PM CDT): Blood pressure is stable. Increasing Imdur. No other changes. Assessment & Plan (02/01/2020 11:11 AM CDT): Most recent 122/72 Cont home meds Assessment & Plan (01/31/2020 4:18 PM CDT): BP above goal, pt did not take any of his medications today -Resume home Lisinopril and Imdur Pure hypercholesterolemia 12/24/2017 Recurrent coronary arteriosc lerosis after percutaneous transluminal coronary angioplasty 05/14/2016 Obesity with body mass index 30 or greater 03/09 Chest pain 03/09/2016 Fatigue 03/09/2016 Encounters Date Type Department Care Team Description 09/10/2024 Community Orders [facility] EpicCare Link Jhony Kam MD Prostate cancer (HCC) (Primary Dx) 07/20/2024 Orders Only [facility] [address] [place] [address] Medical Office Building [address] [place] [phone] Sourav Davis MD Moderate aortic stenosis (Primary Dx) 07/20/2024 Telephone [facility] 8th [place] [address] [place] [phone] Sourav Davis MD 07/16/2024 8:30 AM CDT Ancillary Procedure [facility] [address] [place] [address] 3 [address] [place] [phone] Moderate aortic stenosis; Hypertension, unspecified type 07/16/2024 Results Follow-Up [facility] [address] [place] [address] Sourav Davis MD Transthoracic Echo (TTE) Complete W Doppler/CF 07/07/2024 10:00 AM MANAGER MOBILITY Office Visit [address] Medical Office Building [address] [place] [address] Sourav Davis MD Recurrent coronary arteriosclerosis after percutaneous transluminal coronary angioplasty (Primary Dx); Pure hypercholesterolemia; Moderate aortic stenosis; Hypertension, unspecified type; Coronary artery disease involving mentasta coronary artery of mentasta heart with other form of angina pectoris from Last 3 Months Immunizations Immunization Administration Dates Next Due Influenza, Quadrivalent, Hig h Dose, Preservative Free, Intrr 02/06/2021 Surgical History Surgery Date Site/Laterality Comments CARDIAC CATHETERIZATION CORONARY STENT PLACEMENT 04/10/2016 CORONARY STENT PLACEMENT 02/06/2021 Medical History Medical History Date Comments H/O heart artery stent Hypertension Coronary artery disease Covid-19 01/31/2020 Hyperlipidemia Aortic stenosis Grade II diastolic dysfunction Family History Medical History Relation Name Comments Coronary artery disease Brother Fami ly history of coronary artery disease - (Added by TW Conv) Heart disease Brother valve replacem ent 70's Coronary artery disease Father CABG Heart failure Father Family history of heart failure - (Added by TW Conv) Lung disease Father Family history of lung disease - (Added by TW Conv) Arrhythmia Mother PPM Coronary artery disease Mother Fami ly history of coronary artery disease - (Added by TW Conv) Heart failure Mother Family history of heart failure - (Added by TW Conv) Stroke Mother Family history of stroke - (Added by Conv) Relation Name Status Comments Brother Father Mother Social History Tobacco Use Types Packs/Day Years Used Date Smoking Tobacco: Former Cigars Smokeless Tobacco: Never Tobacco Cessation:Counseling Given: Not Answered Alcohol Use Standard Drinks/Week Comments Defer 0 (1 standard drink = 0.6 oz pur e alcohol) AUDIT-C Answer Date Recorded Q1: How often do you have a drink containing alc ohol? Monthly or less 02/24/2024 Q2: How many drinks containi ng alcohol do you have on a typical day when you are drinking? 1 or 2 02/24/2024 Q3: How often do you have si x or more drinks on one occasion? Never 02/24/2024 Personal Safety Answer Date Recorded Have you ever been in or are you currently in a harmful physical or emotional relationship or is someone making you feel afraid or unsafe? Denies 02/24/2024 Sex and Gender Information Value Date Recorded Sex Assigned at Not on file Legal Sex Male 8:24 AM MANAGER MOBILITY Gender Identity Not on file Sexual Orientation Not on file Obstetrics History Last Filed Vital Signs Vital Sign Reading Time Taken Comments Blood Pressure 130/79 07/07/2024 10:12 AM MANAGER MOBILITY Pulse 67 07/07/2024 10:12 AM MANAGER MOBILITY Temperature 36.4 C (97.5 F) 02/24/2024 8:35 AM CDT Respiratory Rate 18 02/24/2024 4:36 PM CDT Oxygen Saturation 94% 07/07/2024 10:12 AM MANAGER MOBILITY Inhaled Oxygen Concentration - - Weight 113.4 kg (250 lb) 07/07/2024 10:12 AM MANAGER MOBILITY Height 190.5 cm (6' 3 ) 07/07/2024 10:12 AM MANAGER MOBILITY Body Mass Index 31.25 07/07/2024 10:12 AM MANAGER MOBILITY Plan of Treatment Health Maintenance Due Date Last Done Comments Depression Screening 1945 Hepatitis C Screening 1945 Hepatitis B Screening 1965 Zoster Vaccine (1 of 2) 1997 Abdominal Aortic Aneurysm (A AA) Screen 2012 Well Visit 65+ 2012 Pneumococcal vaccine 65+ (2 of 2 - PCV) 05/04/2015 05/04/2014 DTaP/Tdap/Td Vaccine (2 - Td or Tdap) 05/04/2024 05/04/2014 Influenza Vaccine (Season Ended) 2025 02/06/2021, 02/16/2019, 02/16/2018, Additional history exists Fall Risk Assessment 02/23/2025 02/24/2024 Medical Devices Implanted Type Area Bristle Machine Operator Device Identifier Shelf Expiration Date Model / Serial / Lot Daig [employer] [id number] Angio-Seal Evolution 6fr .035in Guidewire Bypass Tube Suture - [id number] - [id number] Implanted:Qty : 1 on 01/05/2021 by Sourav Davis MD at [facility] Collagen Right: Femoral [employer] Fernanda 08/03/2021 [id number] / [id number] / [id number] [employer]ig [employer] [id number] Angio-Seal Evolution 6fr .035in Guidewire Bypass Tube Suture - [id number] - [id number] Implanted:Qty : 1 on 02/06/2021 by Sourav Davis MD at [facility] Collagen [employer] Fernanda 09/02/2021 [id number] / [id number] / [id number] Angio-Seal Vip 6fr Closere Device [id number] - [id number] - [id number] Implanted:Qty : 1 on 10/26/2021 by Sourav Davis MD at [facility] Collagen Right: Groin [employer] Fernanda 08/03/2022 [id number] / [id number] / [id number] [employer] Fernanda Angio-Seal Vip 6fr Closere Device [id number] - [id number] - [id number] Implanted:Qty : 1 on 02/24/2024 by Sourav Davis MD at [facility] Collagen Right: Common Femoral Artery [employer] Fernanda 07/07/2024 [id number] / [id number] / [id number] [employer] Fernanda [id number] Synergy Xd Monorail 2.25mm 38mm 144cm Delivery System 1 Access - [id number] - [id number] Implanted:Qty : 1 on 01/05/2021 by Sourav Davis MD at [facility] Stent N/A: Coronary [employer] Fernanda 08/30/2022 [id number] / [id number] / [id number] [employer] Fernanda [id number] Synergy Xd Monorail 2.5mm 16mm 144cm Delivery System 1 Access - [id number] - [id number] Implanted:Qty : 1 on 01/05/2021 by Sourav Davis MD at [facility] Stent N/A: Coronary [employer] Fernanda 09/19/2022 [id number] / [id number] / [id number] [employer] [id number] Stent Coronary De Rx Cocr Ors Msn 2.5x22mm - [id number] - [id number] Implanted:Qty : 1 on 02/06/2021 by Sourav Davis MD at [facility] Stent N/A: Coronary [employer] 11/07/2022 [id number] / [id number] / [id number] [employer] [id number] Stent Coronary De Rx Cocr Ors Msn 3.0x15mm - [id number] - [id number] Implanted:Qty : 1 on 02/06/2021 by Sourav Davis MD at [facility] Stent N/A: Coronary [employer] 11/08/2022 [id number] / [id number] / [id number] [employer] Stent Coronary De Rx Cocr Ors Msn 2.5x40mm [id number] - [id number] - [id number] Implanted:Qty : 1 on 10/26/2021 by Sourav Davis MD at [facility] Stent N/A: Circumflex Coronary Artery [employer] 05/24/2023 [id number] / [id number] / [id number] Procedures Procedure Name Priority Date/Time Associated Diagnosis Comments TRANSTHORACIC ECHO (TTE) COMPLETE W DOPPLER/CF W CONTRAST Routine 07/16/2024 9:17 AM CDT Moderate aortic stenosis Hypertension, unspecified type from Last 3 Months Results * TRANSTHORACIC ECHO (TTE) COMPLETE W DOPPLER/CF W CONTRAST (07/16/2024 9:17 AM CDT) Anatomical Region Laterality Modality Ultrasound 07/16/2024 8:27 AM CDT Narrative 07/16/2024 10:20 AM CDT [facility] Card[facility] Diagnostic Lab [address], [address] [place] [address] Transthoracic Echocardiographic Report Patient Name: ERIK MICHEL W : 1945 (79y 2m) Gender: M Study Date: 07/16/2024 08:27:24 AM Ht(Inch): 75 Wt(Lb): 250 BSA: 2.45 Confectionery Laboratory Manager: JIM Hagan Location: [facility] Order Provider: SOURAV DVAIS Heart Rate: 54 BMI: 31.24 BP: 135/77 Ref Provider: SOURAV DAVIS PROCEDURES: Echocardiographic Report: Transthoracic complete echo with strain imaging and contrast, 2D, spectral and tissue Doppler, color flow Doppler, M-mode. Contrast: Contrast Enhancement was Employed: After initial imaging due to sub- optimal quality related to co-morbidity defined by patient's body habitus. 0.8 ml Optison Administered, (2.2 ml wasted). INDICATIONS: I35.0 Nonrheumatic aortic (valve) stenosis and I10 Essential (primary) hypertension. CONCLUSIONS: 1. Normal LV size with concentric LV remodeling. LVEF 70%. Indeterminate diastolic function d/t severe MAC. 2. Normal right ventricular size. Normal right ventricular systolic function. 3. Severe MAC. No mitral regurgitation. The mean transmitral gradient is: 3 mmHg. 4. Aortic valve not well visualized due to poor windows. Moderate . The mean gradient is 34 mmHg. The aortic valve area by the continuity equation (using VTI) is 1.22 cm2. Aortic valve dimensionless index is 0.29. 5. The estimated pulmonary artery systolic pressure is 25mmHg+RA pressure. 6. Normal pericardium without pericardial effusion. 7. Normal aortic root size when indexed. 8. IVC not visualized due to not well visualized. . ATTESTATION: 1I have personally reviewed and interpreted this study without fellow or resident. DISCLAIMER: The study images and the final report will be retained in the patient chart by the Echo Laboratory for the legally required time period. This chart constitutes the legal record of any testing performed. FINDINGS: Left Ventricle: Normal left ventricular size based on volume index. Concentric LV remodeling. Normal left ventricular systolic function. The Ejection Fraction (Coley's) is measured at 70 %. Left ventricular diastolic function is indeterminate due to severe mitral annular calcification. The average global longitudinal strain is borderline. The LV global strain is: -17.1 %. Right Ventricle: Normal right ventricular size. Normal right ventricular systolic function. Left Atrium: The left atrium is normal in size. Right Atrium: The right atrium is normal in size. Mitral Valve: Severe mitral annular calcification. No mitral regurgitation. Mild mitral stenosis. The mean transmitral gradient is: 3 mmHg. Aortic Valve: Aortic valve not well visualized due to poor windows. Moderate aortic valve stenosis. The mean transaortic gradient is 34 mmHg. The aortic valve area by the continuity equation (using VTI) is 1.22 cm2. Aortic valve dimensionless index is 0.29. Tricuspid Valve: Normal tricuspid valve structure. No tricuspid regurgitation. The estimated pulmonary artery systolic pressure is 25+rap mmHg. No tricuspid valve stenosis. Pulmonic Valve: Normal pulmonic valve structure. Mild pulmonic regurgitation. No pulmonic valve stenosis present. Pericardium: Normal pericardium without pericardial effusion. Aorta: Normal aortic root size when indexed. IVC: IVC not visualized due to not well visualized. Rhythm: The rhythm during the study was sinus bradycardia. MEASUREMENTS: 2D/MM Value Range Doppler Value Range LVIDd 2D 4.45 cm [ 4.20 - 5.80 ] AV Peak Conrado 3.7 m/s [ 1.0 - 1.7 ] LVIDs 2D 2.52 cm [ 2.50 - 4.00 ] AV Peak PG 54.76 mmHg IVSd 2D 1.23 cm [ 0.60 - 1.00 ] AV Mean PG 34 mmHg LVPWd 2D 1.43 cm [ 0.60 - 1.00 ] AV VTI 102.0 cm LV Thickness Ratio 0.9 LVOT Peak Conrado 1.2 m/s [ 0.7 - 1.1 ] LV FS 2D 43.39 % [ 25.00 - 43.00 ] LVOT Peak PG 5.76 mmHg LV Mass 2D 229.15 g LVOT Mean PG 3 mmHg LV Mass Index 2D 93.53 g/m2 LVOT VTI 30.0 cm RWT 0.64 LVOT Diam 2.30 cm EDV Mod BP 133.61 ml [ 62.00 - 150.00 ] STEPHANE VTI 1.22 cm2 LV EDV Index 54.53 ml/m2 LVOT/AV VTI 0.29 - Dimensionless index (DVI) ESV Mod BP 40.01 ml [ 21.00 - 61.00 ] MV E Peak Conrado 1.1 m/s [ 0.6 - 1.3 ] EF Mod BP 70 % [ 52 - 72 ] MV A Peak Conrado 1.3 m/s [ 1.0 - 1.2 ] LV GLS -17.1 % [ -18.0 - -16.0 ] MV E/A 0.8 ratio [ 0.8 - 1.5 ] LA Length 4C 5.38 cm MV Peak Conrado 1.5 m/s LA Length 2C 5.61 cm MV Peak PG 9.00 mmHg LA Volume BP 66.05 ml MV Mean PG 3 mmHg LA Volume Index 26.96 ml/m2 [ 16.00 - 34.00 ] MV VTI 55.3 cm RV Base Dimen 2D 5.2 cm [ 2.5 - 4.2 ] MV PHT 127.03 msec [ 20.00 - 100.00 ] TAPSE 1.73 cm [ 1.71 - 5.00 ] MVA PHT 1.73 cm2 RA Volume 56.69 ml MV Decel Time 343.68 msec [ 104.00 - 258.00 ] RA Volume Index 23.14 ml/m2 Med E` Conrado 4.7 cm/sec [ 8.0 - 15.0 ] AoR Diam 2D 3.67 cm [ 3.10 - 3.70 ] Lat E` Conrado 4.0 cm/sec [ 10.0 - 15.0 ] Ao Root Index 1.50 cm/m2 [ 1.00 - 2.00 ] Average E/E` 25.29 Asc Ao Diam 2D 3.79 cm RV S` 9.44 cm/sec Asc Ao Index 1.55 cm/m2 TR Peak Conrado 2.4 m/s [ 1.0 - 2.8 ] TR Peak PG 23.0 mmHg PV Peak Conrado 0.8 m/s [ 0.4 - 0.8 ] PV Peak PG 2.56 mmHg PI Peak Conrado 1.8 m/s PI ED Conrado 105.95 m/sec PI Peak PG 13 mmHg PI PHT 466.58 sec Electronically Signed By: Fifi Saavedra MD 07/16/2024 10:19:38 AM CDT Procedure Note Fifi Saavedra MD - 07/16/2024 [facility] Cardiac Diagnostic Lab [address] , [address] [place] [address] Transthoracic Echocardiographic Report Patient Name: ERIK MICHEL W : 1945 (79y 2m) Gender: M Study Date: 07/16/2024 08:27:24 AM Ht(Inch): 75 Wt(Lb): 250 BSA: 2.45 Confectionery Laboratory Manager: JIM Hagan Location: [facility] Order Provider:SOURAV DAVIS Heart Rate: 54 BMI: 31.24 BP: 135/77 Ref Provider: SOURAV DAVIS PROCEDURES: Echocardiographic Report: Transthoracic complete echo with strain imagingand contrast, 2D, spectral and tissue Doppler, color flow Doppler, M-mode. Contrast: Contrast Enhancement was Employed: After initial imaging due tosub- optimal quality related to co-morbidity defined by patient's body habitus. 0.8 mlOptison Administered, (2.2 ml wasted). INDICATIONS: I35.0 Nonrheumatic aortic (valve) stenosis and I10 Essential (primary)hypertension. CONCLUSIONS: 1. Normal LV size with concentric LV remodeling. LVEF 70%. Indeterminatediastolic function d/t severe MAC. 2. Normal right ventricular size. Normal right ventricular systolicfunction. 3. Severe MAC. No mitral regurgitation. The mean transmitral gradient is:3 mmHg. 4. Aortic valve not well visualized due to poor windows. Moderate . Themean gradient is 34 mmHg. The aortic valve area by the continuity equation (using VTI)is 1.22 cm2. Aortic valve dimensionless index is 0.29. 5. The estimated pulmonary artery systolic pressure is 25mmHg+RApressure. 6. Normal pericardium without pericardial effusion. 7. Normal aortic root size when indexed. 8. IVC not visualized due to not well visualized. . ATTESTATION: 1I have personally reviewed and interpreted this study without fellow orresident. DISCLAIMER: The study images and the final report will be retained in the patientchart by the Echo Laboratory for the legally required time period. This chart constitutesthe legal record of any testing performed. FINDINGS: Left Ventricle: Normal left ventricular size based on volume index.Concentric LV remodeling. Normal left ventricular systolic function. The EjectionFraction (Coley's) is measured at 70 %. Left ventricular diastolic function is indeterminatedue to severe mitral annular calcification. The average global longitudinal strain isborderline. The LV global strain is: -17.1 %. Right Ventricle: Normal right ventricular size. Normal right ventricularsystolic function. Left Atrium: The left atrium is normal in size. Right Atrium: The right atrium is normal in size. Mitral Valve: Severe mitral annular calcification. No mitralregurgitation. Mild mitral stenosis. The mean transmitral gradient is: 3 mmHg. Aortic Valve: Aortic valve not well visualized due to poor windows.Moderate aortic valve stenosis. The mean transaortic gradient is 34 mmHg. The aortic valve areaby the continuity equation (using VTI) is 1.22 cm2. Aortic valve dimensionlessindex is 0.29. Tricuspid Valve: Normal tricuspid valve structure. No tricuspidregurgitation. The estimated pulmonary artery systolic pressure is 25+rap mmHg. No tricuspidvalve stenosis. Pulmonic Valve: Normal pulmonic valve structure. Mild pulmonicregurgitation. No pulmonic valve stenosis present. Pericardium: Normal pericardium without pericardial effusion. Aorta: Normal aortic root size when indexed. IVC: IVC not visualized due to not well visualized. Rhythm: The rhythm during the study was sinus bradycardia. MEASUREMENTS: 2D/MM Value Range DopplerValue Range LVIDd 2D 4.45 cm [ 4.20 - 5.80 ] AV Peak Vel3.7 m/s [ 1.0 - 1.7 ] LVIDs 2D 2.52 cm [ 2.50 - 4.00 ] AV Peak PG54.76 mmHg IVSd 2D 1.23 cm [ 0.60 - 1.00 ] AV Mean PG34 mmHg LVPWd 2D 1.43 cm [ 0.60 - 1.00 ] AV SIQ595.0 cm LV Thickness Ratio 0.9 LVOT Peak Vel1.2 m/s [ 0.7 - 1.1 ] LV FS 2D 43.39 % [ 25.00 - 43.00 ] LVOT Peak PG5.76 mmHg LV Mass 2D 229.15 g LVOT Mean PG3 mmHg LV Mass Index 2D 93.53 g/m2 LVOT VTI30.0 cm RWT 0.64 LVOT Diam2.30 cm EDV Mod BP 133.61 ml [ 62.00 - 150.00 ] STEPHANE VTI1.22 cm2 LV EDV Index 54.53 ml/m2 LVOT/AV VTI0.29 - Dimensionless index (DVI) ESV Mod BP 40.01 ml [ 21.00 - 61.00 ] MV E Peak Vel1.1 m/s [ 0.6 - 1.3 ] EF Mod BP 70 % [ 52 - 72 ] MV A Peak Vel1.3 m/s [ 1.0 - 1.2 ] LV GLS -17.1 % [ -18.0 - -16.0 ] MV E/A0.8 ratio [ 0.8 - 1.5 ] LA Length 4C 5.38 cm MV Peak Vel1.5 m/s LA Length 2C 5.61 cm MV Peak PG9.00 mmHg LA Volume BP 66.05 ml MV Mean PG3 mmHg LA Volume Index 26.96 ml/m2 [ 16.00 - 34.00 ] MV VTI55.3 cm RV Base Dimen 2D 5.2 cm [ 2.5 - 4.2 ] MV TFB498.03 msec [ 20.00 - 100.00 ] TAPSE 1.73 cm [ 1.71 - 5.00 ] MVA PHT1.73 cm2 RA Volume 56.69 ml MV Decel Eepr533.68 msec [ 104.00 - 258.00 ] RA Volume Index 23.14 ml/m2 Med E` Vel4.7 cm/sec [ 8.0 - 15.0 ] AoR Diam 2D 3.67 cm [ 3.10 - 3.70 ] Lat E` Vel4.0 cm/sec [ 10.0 - 15.0 ] Ao Root Index 1.50 cm/m2 [ 1.00 - 2.00 ] Average E/E`25.29 Asc Ao Diam 2D 3.79 cm RV S`9.44 cm/sec Asc Ao Index 1.55 cm/m2 TR Peak Vel2.4 m/s [ 1.0 - 2.8 ] TR Peak PG 23.0 mmHg PV Peak Conrado 0.8 m/s [ 0.4 - 0.8 ] PV Peak PG 2.56 mmHg PI Peak Conrado 1.8 m/s PI ED Conrado 105.95 m/sec PI Peak PG 13 mmHg PI PHT 466.58 sec Electronically Signed By: Fifi Saavedra MD 07/16/2024 10:19:38 AM CDT Sourav Davis MD CV ECHO PROCEDURES F inal Result from Last 3 Months Insurance UHC MEDICARE ADVANTAGE [facility] RE[facility] [employer] MEDICARE [facility] Address: [address] [place] [address] UHC MEDICARE ADVANTAGE [facility] HMO REF Advance Directives For more information, please contact: [phone] * Full Code (Latest Code Status on File) Date Activated Date Inactivated Comments 02/24/2024 1:43 PM 02/24/2024 11:16 PM * Full Code Date Activated Date Inactivated Comments 10/26/2021 5:17 PM 10/26/2021 10:55 PM * Full Code Date Activated Date Inactivated Comments 02/06/2021 9:56 AM 02/06/2021 5:48 PM * Full Code Date Activated Date Inactivated Comments 01/05/2021 3:54 PM 01/05/2021 11:57 PM * Full Code Date Activated Date Inactivated Comments 01/31/2020 3:44 PM 02/01/2020 7:35 PM Care Teams Hemodialysis Rn Relationship Specialty Start Date End Date Raysa Yuan MD [address] [place] [address] [address] PCP - General Family Practice 03/12/23
--- OUTSIDE RECORDS SUMMARY | 2024-09-24 09:28 | XMS_ITS | Referral Summary ---
Author Organization [facility] Address [address] [place] [id number] Care Team Providers Care Product Management Manager Name Role Phone Raysa Yuan MD Primary Care Provider Encounters Date Type Department Care Team Description 09/10/2024 Community Orders [facility] EpicCare Link Jhony Kam MD Prostate cancer (HCC) (Primary Dx) 07/20/2024 Orders Only [facility] Card[facility] [address] [place] [address] Medical Office Building [address] [place] [address] Sourav Davis MD Moderate aortic stenosis (Primary Dx) 07/20/2024 Telephone [facility] [address] [place] [address] 8th [place] [address] [place] [address] Sourav Davis MD 07/16/2024 Results Follow-Up [facility] [address] [place] [address] Sourav Davis MD Transthoracic Echo (TTE) Complete W Doppler/CF 07/16/2024 8:30 AM CDT Ancillary Procedure [facility] [address] [place] [address] [address] [place] [address] Moderate aortic stenosis; Hypertension, unspecified type 07/07/2024 10:00 AM 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 Office Visit [facility] [address] [facility] Medical Office Building [address] [place] [address] Sourav Davis MD 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 Kellieid could explain this- maybe not the whole [...] slntg prn for chest pain F/u with Client Hr Manager- re evaluate symptoms after covid isolation complete. 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 Gender Identity Not on file Sexual Orientation Not on file Last Filed Vital Signs Vital Sign Reading Time Taken Comments Blood Pressure 130/79 07/07/2024 10:12 AM 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 Pulse 67 07/07/2024 10:12 AM 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 Temperature 36.4 C (97.5 F) 02/24/2024 8:35 AM CDT Respiratory Rate 18 02/24/2024 4:36 PM CDT Oxygen Saturation 94% 07/07/2024 10:12 AM 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 Inhaled Oxygen Concentration - - Weight 113.4 kg (250 lb) 07/07/2024 10:12 AM 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 Height 190.5 cm (6' 3 ) 07/07/2024 10:12 AM 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 Body Mass Index 31.25 07/07/2024 10:12 AM 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 Plan of Treatment Not on file Medical Devices Implanted Type Area Solar Designer Device Identifier Shelf Expiration Date Model / Serial / Lot Daig Fernanda[employer] [id number] Angio-Seal Evolution 6fr .035in Guidewire Bypass Tube Suture - [id number] - [id number] Implanted:Qty : 1 on 01/05/2021 by Sourav Davis MD at [facility] Collagen Right: Femoral [employer] Fernanda 08/03/2021 [id number] / [id number] / [id number] [employer]ig Fernanda[employer] [id number] Angio-Seal Evolution 6fr .035in Guidewire Bypass Tube Suture - [id number] - [id number] Implanted:Qty : 1 on 02/06/2021 by Sourav Davis MD at [facility] Collagen [employer] Fernanda 09/02/2021 [id number] / [id number] / [id number] Angio-Seal Vip 6fr Closere Device [id number] - [id number] - [id number] Implanted:Qty : 1 on 10/26/2021 by Sourav Davis MD at [facility] Collagen Right: Groin [employer] Fernanda 08/03/2022 [id number] / [id number] / [id number] [employer] Fernanda Angio-Seal Vip 6fr Closere Device [id number] - [id number] - [id number] Implanted:Qty : 1 on 02/24/2024 by Sourav Davis MD at [facility] Collagen Right: Common Femoral Artery [employer] Fernanda 07/07/2024 [id number] / [id number] / [id number] [place] [employer] Fernanda [id number] Synergy Xd Monorail 2.25mm 38mm 144cm Delivery System 1 Access - [id number] - [id number] Implanted:Qty : 1 on 01/05/2021 by Sourav Davis MD at [facility] Stent N/A: Coronary [employer] Fernanda 08/30/2022 [id number] / [id number] / [id number] [employer] [id number] Synergy Xd Monorail 2.5mm 16mm 144cm Delivery System 1 Access - [id number] - [id number] Implanted:Qty : 1 on 01/05/2021 by Sourav Davis MD at [facility] Stent N/A: Coronary [employer] Fernanda 09/19/2022 [id number] / [id number] / [id number] [employer]ot[employer] Inc [id number] Stent Coronary De Rx Cocr Ors Msn 2.5x22mm - [id number] - [id number] Implanted:Qty : 1 on 02/06/2021 by Sourav Davis MD at [facility] Stent N/A: Coronary [employer] 11/07/2022 [id number] / [id number] / [id number] Bi[employer] Inc [id number] Stent Coronary De Rx Cocr Ors Msn 3.0x15mm - [id number] - [id number] Implanted:Qty : 1 on 02/06/2021 by Sourav Davis MD at [facility] Stent N/A: Coronary [employer] 11/08/2022 [id number] / [id number] / [id number] [employer] Inc Stent Coronary De Rx Cocr Ors Msn 2.5x40mm [id number] - [id number] - [id number] Implanted:Qty : 1 on 10/26/2021 by Sourav Davis MD at [facility] Stent N/A: Circumflex Coronary Artery [employer] 05/24/2023 [id number] / [id number] / [id number] Procedures Procedure Name Priority Date/Time Associated Diagnosis Comments TRANSTHORACIC ECHO (TTE) COMPLETE W DOPPLER/CF W CONTRAST Routine 07/16/2024 9:17 AM CDT Moderate aortic stenosis Hypertension, unspecified type from Last 3 Months Results * TRANSTHORACIC ECHO (TTE) COMPLETE W DOPPLER/CF W CONTRAST (07/16/2024 9:17 AM CDT) Anatomical Region Laterality Modality Ultrasound 07/16/2024 8:27 AM CDT Narrative 07/16/2024 10:20 AM CDT [facility] [address] , [address] [place] [address] Transthoracic Echocardiographic Report Patient Name: ERIK MICHEL W : 1945 (79y 2m) Gender: M Study Date: 07/16/2024 08:27:24 AM Ht(Inch): 75 Wt(Lb): 250 BSA: 2.45 College Sports Assistant: JIM Hagan Location: [facility] Order Provider: SOURAV DAVIS Heart Rate: 54 BMI: 31.24 BP: [...] Procedure Note Fifi Saavedra MD - 07/16/2024 [facility] [address] , [address] [place] [address] Transthoracic Echocardiographic Report Patient Name: ERIK MICHEL W : 1945 (79y 2m) Gender: M Study Date: 07/16/2024 08:27:24 AM Ht(Inch): 75 Wt(Lb): 250 BSA: 2.45 College Sports Assistant: JIM Hagan Location: [facility] Order Provider:SOURAV DAVIS Heart Rate: 54 BMI: [...] cm [ 0.60 - 1.00 ] AV NXM530.0 cm LV Thickness Ratio 0.9 LVOT Peak [...] cm [ 2.5 - 4.2 ] MV MKZ151.03 msec [ 20.00 - 100.00 ] TAPSE 1.73 cm [ 1.71 - 5.00 ] MVA PHT1.73 cm2 RA Volume 56.69 ml MV Decel Ovgc978.68 msec [ 104.00 - 258.00 ] RA [...] inal Result from Last 3 Months Insurance MEDICARE ADVANTAGE [facility]CR HMO REF [facility] GOLD [facility] MEDIC[facility] Address: [address] [place] [address] UHC MEDICARE ADVANTAGE [facility] MDCR HMO REF Advance Directives For more information, please contact: [phone] * Full Code (Latest Code Status on [...] 3:44 PM 02/01/2020 7:35 PM Care Teams Product Management Manager Relationship Specialty Start Date End Date Raysa Yuan MD [address] [place] [address] [address] PCP - General Family Practice 03/12/23
--- OUTSIDE RECORDS SUMMARY | 2024-09-24 09:28 | XMS_ITS | Encounter Summary ---
Author Organization [facility] Healthcare Address [address] [place] [address] Care Team Providers Care Frameman Name Role Phone Raysa Yuan MD Primary Care Provider Reason for Referral * MRI/CAT/PET Scan (Routine) - Authorized Specialty Diagnoses / Procedures Referred By Contac t Referred To Contact Radiology Diagnoses Prostate cancer (HCC) Procedures MRI PELVIS PROSTATE W WO CONTRAST Jhony Kam MD [address] [facility] [address] [address] Phone: tel: fax: [address] [address] Referral ID Status Reason Start Date Expiration Date V isits Requested Visits Authorized [id number] Authorized 09/10/2024 10/10/2025 1 1 Encounter Details Date Type Department Care Team (Late st Contact Info) Description 09/10/2024 Community Orders [facility] EpicCare Link Jhony Kam MD [address] [facility] [address] [address] Prostate cancer (HCC) (Primary Dx) Social History Tobacco Use Types Packs/Day Years Used Date Smoking Tobacco: Former Cigars Smokeless Tobacco: Never Alcohol Use Standard Drinks/Week [...] on file 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 Gender Identity Not on file Sexual Orientation Not on file documented as of this encounter Plan of Treatment Scheduled Orders Name Type Priority Associated Diagnoses Orde r Schedule MRI PELVIS PROSTATE W WO CONTRAST Imaging Schedule Routine, Read Routine (OP Routine) Prostate cancer (HCC) Expected: 09/10/2024, Expires: 09/10/2025 documented as of this encounter Visit Diagnoses Diagnosis Prostate cancer (HCC)- Primary Malignant neoplasm of prostate documented in this encounter Care Teams Frameman Relationship Specialty Start Date End Date Raysa Yuan MD [address] [facility] [address] [place] [address] [place] [address] PCP - General Family Practice 03/12/23 documented as of this encounter
--- OUTSIDE RECORDS SUMMARY | 2024-09-24 09:28 | XMS_ITS | Encounter Summary ---
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 Gender Identity Not on file Sexual Orientation Not on file documented as of this encounter Plan of Treatment Not on file documented as of this encounter Procedures Procedure Name Priority Date/Time Associated Diagnosis Comments SCAN - LABS 08/17/2022 documented in this encounter Results * SCAN - LABS (08/17/2022) us Provider Scanning Final Result documented in this encounter Visit Diagnoses Not on filedocumented in this encounter Care Teams Child Guidance Counselor Relationship Specialty Start Date End Date Raysa Yuan MD [address] [facility] [address] [place] [address] PCP - General Family Practice 03/12/23 documented as of this encounter
[2024-09-24 11:43] LABS: Add Urine Microscopic? NO; Appearance Urine Clear (Clear); Bilirubin Urine Negative (Negative); Blood Urine Negative (Negative); Color Urine Yellow (Yellow); Glucose Urine UA Negative (Negative); Ketones Urine Trace mg/dL (Negative); Leukocyte Esterase Ur Negative LEU/UL (Negative); Nitrate Urine Negative (Negative); Protein Urine Negative (Negative); Specific Grav Ur 1.018 (1.001-1.035)
[2024-09-24 11:43] LABS: Basophils Percent Auto 0.5 % (0.2-1.2); Eosinophils Absolute Auto 0.3 K/mm3 (0-0.3); Eosinophils Percent Auto 4.5 % (0-4.4); Hematocrit 45.9 % (42.0-52.0); Hemoglobin 14.5 g/dL (14.0-18.0); Immature Granulocyte Absolute 0.01 K/mm3 (0.00-0.031); Immature Granulocyte Percent A 0.2 % (0-0.5); Lymphocytes Absolute Auto 1.72 K/mm3 (0.9-3.2); Lymphocytes Percent Auto 29.5 % (18.3-44.2); Mean Corpuscular HGB Conc 31.6 g/dl (32-36); Mean Corpuscular Hemoglobin 29.7 pg (26-34); Mean Corpuscular Volume 93.9 fl (80-100); Mean Platelet Volume 10.3 fl (7.4-10.4); Monocytes Absolute Auto 0.7 K/mm3 (0.1-0.6); Monocytes Percent Auto 11.5 % (2.6-8.5); Neutrophils Absolute Auto 3.2 K/mm3 (1.3-6.7); Neutrophils Percent Auto 53.8 % (45.5-73.1); Platelet Count Result 223 k/mm3 (150-375); Red Blood Count 4.89 M/mm3 (4.6-6.20); Red Cell Distribution Width 13.2 % (11.5-14.5); White Blood Count 5.8 K/mm3 (4.5-10.0)
[2024-09-24 11:53] LABS: Alanine Aminotransferase 29 U/L (6-50); Albumin Level 4.1 g/dL (3.5-5.1); Alkaline Phosphatase 87 U/L (38-126); Anion Gap 5 mmol/L (4-12); Aspartate Amino Transferase 64 U/L (17-59); Bilirubin,Total 0.9 mg/dL (0.2-1.3); Blood Urea Nitrogen 11 mg/dL (9-20); Calcium 8.9 mg/dL (8.4-10.2); Carbon Dioxide 32 mmol/L (22-30); Chloride 105 mmol/L (98-107); Cholesterol 126 mg/dL (0-200); Estimated Glomerular Filt Rate > 60; Glucose 94 mg/dL (65-110); HDL Direct 42 mg/dL; Potassium 4.7 mmol/L (3.4-5.0); Sodium 142 mmol/L (137-145); Triglycerides 105 mg/dL (<150)
[2024-09-24 12:04] LABS: LDL Cholesterol Direct 49 mg/dL
[2024-09-24 12:13] LABS: Vitamin D 25 Hydroxy 30.5 ng/mL
[2024-09-24 12:26] LABS: Thyroid Stimulating Hormone Reflex 0.566 uIU/mL (0.465-4.68)
[2024-09-24 12:29] LABS: Hemoglobin A1C 5.8 % (<5.7)
== END 2024-09-24 09:24 | disposition home or self-care (01) ==
LOC: ANHGOSHLAB 09:24
PROVIDERS: PCP Family Medicine; Visit Provider Family Medicine
DX: R10.9 Unspecified abdominal pain (principal); E78.5 Hyperlipidemia, unspecified; E53.8 Deficiency of other specified B group vitamins; E55.9 Vitamin D deficiency, unspecified; I10 Essential (primary) hypertension; R73.03 Prediabetes
CPT/HCPCS: 36415; 80053; 80061; 81003; 82306; 82607; 83036; 84443; 85025

== ENCOUNTER 2024-12-29 17:29 | Emergency (ER) | payer MEDICARE, SELFPAY ==
--- NOTE | ~2024-12-29 | XR_ITS ---
EXAMINATION: XR chest 1V DATE: 12/29/2024 19:39 INDICATION: Cough, fever and recent surgery TECHNIQUE: frontal view of the chest was obtained. COMPARISON: Chest radiograph dated 09/18/2024 FINDINGS: Lung volumes appear further decreased although this may be accentuated by more lordotic positioning. Opacities at the bilateral lower lung zones which could represent atelectasis or pneumonia. No pulmonary edema, pleural effusion or pneumothorax. Heart size is normal. Dual lead pacemaker seen with leads projecting over the expected locations of the right atrium and right ventricle. IMPRESSION: 1. Decreased lung volumes with opacities in the bilateral lower lung zones which could represent atelectasis or pneumonia. Reviewed, dictated and finalized at location A. IMPRESSION: 1. Decreased lung volumes with opacities in the bilateral lower lung zones whic h could represent atelectasis or pneumonia.
[2024-12-29 17:45] VITALS: BP 104/50; PULSE 78; RESP 16; TEMP 37.2; O2SAT 96
[2024-12-29 18:58] VITALS: BP 104/51; PULSE 79; RESP 25; TEMP 37; O2SAT 95
[2024-12-29 19:01] VITALS: BP 106/62; PULSE 76; RESP 20; TEMP 36.9; O2SAT 95
[2024-12-29 19:13] VITALS: O2SAT 95
--- NOTE | 2024-12-29 19:28 | ECG_ITS ---
Test Date: 2024-12-29 21:11:21 Measurements Intervals [place] Rate: 74 P: 4 TN: 203 QRS: 48 QRSD: 150 T: 50 QT: 406 QTc: 453 Interpretive Statements SINUS RHYTHM RIGHT BUNDLE BRANCH BLOCK BASELINE ARTIFACT- I, III ABNORMAL ECG No previous ECG available for comparison Electronically Signed On 12-30-2024 06:28:55 CDT by Camden Bird D.O.
--- NOTE | 2024-12-29 19:29 | ED.URI ---
HPI - URI/Sore Throat General Chief Complaint: Upper Respiratory Infection Stated Complaint: cough, congestion Time Seen by Provider: 12/29/24 18:46 History of Present Illness HPI Narrative: Patient is a 79-year-old male presents to the ER with a cough and fever. He reports he had a valve replaced on Saturday, 8 days ago. Patient had a pacemaker placed on Saturday, days ago. Saturday night, 2 days ago, patient started coughing and developed a fever on Saturday. He reports he has been sitting around more since surgery. Patient denies chest pain but endorses tenderness at the site of his pacemaker. He denies any new back pain, abdominal pain, or constipation. Patient endorses a history of cardiac stents and an enlarged prostate. He currently has a West catheter in, as he was unable to urinate after his surgery. Patient reports he has a follow-up appointment with his organic section technical lead tomorrow and Urology in 2 days. Related Data Home Medications ?Medication ?Instructions ?Recorded ?Confirmed ?Last Taken ?Type aspirin 81 mg tablet,delayed 81 mg PO DAILY 08/14/22 09/18/24 Unknown History release (Adult Low Dose Aspirin) atorvastatin 80 mg tablet 80 mg PO QHS 08/14/22 09/18/24 Unknown History clopidogrel 75 mg tablet 75 mg PO DAILY 08/14/22 09/18/24 10/06/22 History isosorbide mononitrate 120 mg 120 mg PO DAILY 08/14/22 09/18/24 Unknown History tablet,extended release 24 hr lisinopril 5 mg tablet 5 mg PO DAILY 08/14/22 09/18/24 Unknown History metoprolol succinate 25 mg 25 mg PO DAILY 08/29/23 09/18/24 Unknown History tablet,extended release 24 hr cyanocobalamin (vitamin B-12) 1,000 mcg PO .QOD 09/18/24 09/18/24 Unknown History 1,000 mcg sublingual tablet Allergies Allergy/AdvReac Type Severity Reaction Status Date / Time No Known Allergies Allergy Verified 12/29/24 17:49 Review of Systems Review of Systems: All systems reviewed & are unremarkable except as noted in HPI and below PMFSH Past Medical History Medical History Prediabetes Vitamin D deficiency Vitamin B12 deficiency Grade II diastolic dysfunction CAD in [place] artery Dyslipidemia Essential (primary) hypertension Heart disease Surgical History Surgical History History of coronary artery stent placement 02/2024 - angioplasty 04/2016 - LAD/Diagonal 01/2021 - proximal and apical LAD 10/2021: laser atherectomy and stent in left circumflex History of left knee surgery History of nasal surgery ORIF of nose fracture History of tonsillectomy H/O cardiac catheterization (~2019) Billy Family History Family History Father Heart problem Mother Cerebrovascular accident Heart problem Sibling Hypertension Heart problem Other Family history of coronary artery disease Social History Social History Smoking status: Former smoker (cigars rarely) Tobacco type: cigars Alcohol intake: current Substance use: never Substance use type: does not use Lack of Transportation: No Lack of Food: Never True Current Housing: I Have Housing Concerned About Future Housing: No Difficulty Paying Gas/Electric Bills: No Difficulty Paying for Meds: No Currently Unemployed: No Education: High School Diploma/GED Difficulty w/ Childcare or Family Care: No Living arrangements: with family Occupation/Education: retired Gender identity (if verbalized by the patient): Male Sexual Orientation (if Verbalized by the Patient): Straight or Heterosexual Spiritual care concerns: No Agree to blood products: Yes Exam Narrative: GENERAL: Well appearing, well-nourished, non-toxic, in no acute distress. HEAD: Normocephalic, atraumatic. NECK: Supple. No adenopathy, no masses. RESPIRATORY: Airway patent, respirations nonlabored. Clear to auscultation bilaterally, no rales, rhonchi, wheezing. CARDIOVASCULAR: Regular rate and rhythm, + murmur. Peripheral pulses 2+ and equal bilaterally. ABDOMINAL: Soft, nontender, nondistended, no hepatosplenomegaly. Normoactive BS. MUSCULOSKELETAL: Moves all extremities. Strength/ROM intact without gross deformities. SKIN: Warm, dry, normal color. No rashes. NEURO: A&O X3. Speech clear. Cranial nerves II-XII intact. No ataxic movements. PSYCHIATRIC: Appropriate mood and affect. Normal interaction. Course Vital Signs Vital signs: Vital Signs Temperature 37.2 C 12/29/24 17:45 Pulse Rate 78 12/29/24 17:45 Respiratory Rate 16 12/29/24 17:45 Blood Pressure 104/50 L 12/29/24 17:45 Pulse Oximetry 96 12/29/24 17:45 Oxygen Delivery Room Air 12/29/24 17:45 Temperature 36.9 C 12/29/24 19:01 Pulse Rate 76 12/29/24 19:01 Respiratory Rate 20 12/29/24 19:01 Blood Pressure 106/62 12/29/24 19:01 Pulse Oximetry 95 12/29/24 19:13 Oxygen Delivery Room Air 12/29/24 19:13 MDM - URI/Sore Throat MDM Narrative Medical decision making narrative: Patient is a 79-year-old male presents to the ER with a cough and fever. He reports he had a valve replaced on Saturday, 8 days ago. Patient had a pacemaker placed on Saturday, days ago. Saturday night, 2 days ago, patient started coughing and developed a fever on Saturday. He reports he has been sitting around more since surgery. Patient denies chest pain but endorses tenderness at the site of his pacemaker. He denies any new back pain, abdominal pain, or constipation. Patient endorses a history of cardiac stents and an enlarged prostate. He currently has a West catheter in, as he was unable to urinate after his surgery. Patient reports he has a follow-up appointment with his organic section technical lead tomorrow and Urology in 2 days. Labs Ordered: CBC, CMP, PTT, INR, lactic acid, UA, CRP, COVID/flu/RSV swab Imaging Ordered: Chest x-ray Medications Ordered: Doxycycline p.o., azithromycin p.o. Results: Patient his positive for COVID. His chest x-ray indicates Decreased lung volumes with opacities in the bilateral lower lung zones which could represent atelectasis or pneumonia. Risks: CURB-65 Score for Pneumonia Severity from [email or web address] on 12/29/2024 All calculations should be rechecked by clinician prior to use RESULT SUMMARY: 1 points Low risk group: 2.7% 30-day mortality. Consider outpatient treatment. INPUTS: Confusion ?> 0 = No BUN >19 mg/dL (>7 mmol/L urea) ?> 0 = No Respiratory Rate >=0 ?> 0 = No Systolic BP <90 mmHg or Diastolic BP <=0 mmHg ?> 0 = No Age >=5 ?> 1 = Yes Diagnosis: COVID, pneumonia Patient Education/Shared MDM: Results of lab work and imaging shared with patient and his family. He was ambulated around the ER and his oxygen saturation went down to 92% on room air. Patient is not requiring additional oxygen to stay above 95% while laying on his stretcher. Patient strongly advised to maintain hydration status upon discharge and follow-up with his PCP as soon as possible. He reports he has an appointment set up with his organic section technical lead tomorrow and his urologist in 2 days. Patient strongly advised to keep these appointments. He will be discharged home with a prescription for doxycycline, azithromycin, and an albuterol inhaler. Patient strongly advised to complete his full dose of antibiotics. Strict return precautions provided. Patient verbalized understanding and is in agreement with plan. Vital signs stable at time of discharge. All questions answered. Differential Diagnosis Differential diagnosis: Likely upper respiratory infection, viral infection, bronchitis, influenza and other (Pneumonia, sepsis) Lab Data Attestation: I reviewed the patient's lab results. 12/29/24 19:47 12/29/24 19:47 Labs: Lab Results 12/29/24 12/29/24 12/29/24 Range/Units 18:53 19:47 20:21 WBC 6.0 (4.5-10.0) K/mm3 RBC 3.85 L (4.6-6.20) M/mm3 Hgb 11.6 L (14.0-18.0) g/dL Hct 35.2 L (42.0-52.0) % MCV 91.4 (80-100) fl MCH 30.1 (26-34) pg MCHC 33.0 (32-36) g/dl RDW 13.2 (11.5-14.5) % Plt Count 122 L (150-375) k/mm3 MPV 9.6 (7.4-10.4) fl Immature Gran % (Auto) 0.8 H (0-0.5) % Neut % (Auto) 61.1 (45.5-73.1) % Lymph % (Auto) 16.9 L (18.3-44.2) % [place] % (Auto) 17.7 H (2.6-8.5) % Eos % (Auto) 2.7 (0-4.4) % Baso % (Auto) 0.8 (0.2-1.2) % Lymph # (Auto) 1.01 (0.9-3.2) K/mm3 [place] # (Auto) 1.1 H (0.1-0.6) K/mm3 Eos # (Auto) 0.2 (0-0.3) K/mm3 Baso # (Auto) 0.1 (0.0-0.1) K/mm3 Abs Immat Gran (auto) 0.05 H (0.00-0.031) K/mm3 Absolute Neuts (auto) 3.7 (1.3-6.7) K/mm3 Absolute Nucleated RBC 0.000 (0.0-0.012) K/mm3 Nucleated RBC % 0.0 (0.0-0.2) % PT 14.3 (11.1-14.7) Seconds INR 1.1 APTT 29.0 (22.3-36.8) Seconds Sodium 134 L (137-145) mmol/L Potassium 4.6 (3.4-5.0) mmol/L Chloride 102 (98-107) mmol/L Carbon Dioxide 28 (22-30) mmol/L Anion Gap 4 (4-12) mmol/L BUN 17 (9-20) mg/dL Creatinine 1.06 (0.7-1.3) mg/dL Estim Creat Clear Calc 68 ml/min Estimated GFR > 60 (59 - ) Glucose 100 (65-110) mg/dL Lactic Acid 0.9 (0.7-2.0) mmol/L Calcium 8.6 (8.4-10.2) mg/dL Total Bilirubin 0.8 (0.2-1.3) mg/dL AST 55 (17-59) U/L ALT 38 (6-50) U/L Alkaline Phosphatase 85 (38-126) U/L C-Reactive Protein 2.5 H (<1.0) mg/dL Total Protein 6.7 (6.3-8.2) g/dL Albumin 3.6 (3.5-5.1) g/dL Urine Color Dark yellow (Yellow) Urine Appearance Cloudy H (Clear) Urine pH 5.0 (5.0-9.0) Ur Specific [place] 1.033 (1.001-1.035) Urine Protein 1+ H (Negative) mg/dL Urine Glucose (UA) Negative (Negative) mg/dL Urine Ketones Trace H (Negative) mg/dL Ur Blood (Man) 2+ H (Negative) Urine Nitrate Negative (Negative) Urine Bilirubin 1+ H (Negative) Urine Urobilinogen 1.0 (<2.0) mg/dL Add Ur Microanalysis Reviewed Leukocyte Esterase Rfl Trace H (Negative) JOSE/UL Urine RBC 51-100 H (0-2) /hpf Urine WBC 0-5 (0-3) /hpf Ur Squamous Epith Cells Occasional (Few) /hpf Urine Bacteria None seen /hpf Urine Casts 6-10 Hyaline Casts Present (None) /lpf Urine Mucus Present /lpf Influenza A (RT-PCR) Negative (Negative) Influenza B (RT-PCR) Negative (Negative) RSV (RT-PCR) Negative (Negative) SARS-CoV-2 RNA (RT-PCR) Positive A (Negative) Imaging Data Attestation: I personally reviewed and interpreted this imaging study as follows: Radiologist's impression: Impressions Chest X-Ray 12/29/24 19:58 IMPRESSION: 1. Decreased lung volumes with opacities in the bilateral lower lung zones which could represent atelectasis or pneumonia. Discharge Plan Discharge Clinical Impression: Upper respiratory infection, Pneumonia, COVID-19 Patient Disposition: Home Condition: Stable Instructions: Antibiotic Form, Community Acquired Pneumonia (ED), COVID-19 (Coronavirus Disease 2019) (ED) Additional Instructions: Please return to the ER with any worsening symptoms. Follow-up with primary care provider and your organic section technical lead, as planned. Take all medications as prescribed, including regularly scheduled medications. Please complete your full dose of antibiotics. Remember to stay well hydrated at home and try to walk around your house at least once an hour while awake. Patient Language: Albanian Prescriptions: New azithromycin 250 mg tablet See Rx Instructions .ROUTE .COMPLEX Qty: 6 0RF Rx Instructions: For 250 mg dose pack: take 500 mg today (day 1), then 250 mg for 4 days (days 2-5) doxycycline monohydrate 100 mg capsule 100 mg PO BID Qty: 14 0RF albuterol sulfate [Ventolin HFA] 90 mcg/actuation HFA aerosol inhaler 1 inh inhalation QID PRN (Reason: shortness of breath or wheezing) Qty: 8.5 0RF benzonatate 100 mg capsule 100 mg PO TID Qty: 30 0RF No Action aspirin [Adult Low Dose Aspirin] 81 mg tablet,delayed release (DR/EC) 81 mg PO DAILY lisinopril 5 mg tablet 5 mg PO DAILY atorvastatin 80 mg tablet 80 mg PO QHS clopidogrel 75 mg tablet 75 mg PO DAILY isosorbide mononitrate 120 mg tablet extended release 24 hr 120 mg PO DAILY metoprolol succinate 25 mg tablet extended release 24 hr 25 mg PO DAILY cyanocobalamin (vitamin B-12) 1,000 mcg tablet, sublingual 1,000 mcg PO .QOD cholecalciferol (vitamin D3) 50 mcg (2,000 unit) tablet 50 mcg PO BID Qty: 180 2RF Follow-up/Referrals: Kody Yuan MD [Primary Care Provider, Family Practice] Time of Disposition: 22:07
--- NOTE | 2024-12-29 19:34 | PC.NURSE ---
pt taken to CT on stretcher.
[2024-12-29 19:35] LABS: Influenza A QL RT-PCR Negative (Negative); Influenza B QL RT-PCR Negative (Negative); RSV RNA, RT-PCR Negative (Negative); SARS-CoV-2 RNA PCR Positive (Negative)
[2024-12-29 19:58] LABS: Hematocrit 35.2 % (42.0-52.0); Hemoglobin 11.6 g/dL (14.0-18.0); Immature Granulocyte Percent A 0.8 % (0-0.5); Lymphocytes Absolute Auto 1.01 K/mm3 (0.9-3.2); Mean Corpuscular HGB Conc 33.0 g/dl (32-36); Mean Corpuscular Hemoglobin 30.1 pg (26-34); Mean Corpuscular Volume 91.4 fl (80-100); Nucleated Red Blood Cells Absolute Auto 0.000 K/mm3 (0.0-0.012); Nucleated Red Blood Cells Perc 0.0 % (0.0-0.2); Platelet Count Result 122 k/mm3 (150-375); Red Blood Count 3.85 M/mm3 (4.6-6.20); White Blood Count 6.0 K/mm3 (4.5-10.0)
[2024-12-29 20:10] LABS: Alanine Aminotransferase 38 U/L (6-50); Albumin Level 3.6 g/dL (3.5-5.1); Alkaline Phosphatase 85 U/L (38-126); Anion Gap 4 mmol/L (4-12); Aspartate Amino Transferase 55 U/L (17-59); Bilirubin,Total 0.8 mg/dL (0.2-1.3); Blood Urea Nitrogen 17 mg/dL (9-20); CRP 2.5 mg/dL (<1.0); Calcium 8.6 mg/dL (8.4-10.2); Carbon Dioxide 28 mmol/L (22-30); Chloride 102 mmol/L (98-107); Estimated CRCL calculation 68 ml/min; Estimated Glomerular Filt Rate > 60; Glucose 100 mg/dL (65-110); Potassium 4.6 mmol/L (3.4-5.0); Sodium 134 mmol/L (137-145); Total Protein 6.7 g/dL (6.3-8.2)
[2024-12-29 20:24] LABS: INR 1.1; Partial Thromboplastin Time 29.0 Seconds (22.3-36.8); Prothrombin Time 14.3 Seconds (11.1-14.7)
[2024-12-29 20:55] LABS: Add Urine Microscopic? YES; Appearance Urine Cloudy (Clear); Glucose Urine UA Negative (Negative); Leukocyte Esterase Ur Trace LEU/UL (Negative); Need Manual Microscopic Reviewed; Nitrate Urine Negative (Negative); Specific Grav Ur 1.033 (1.001-1.035)
[2024-12-29] MEDS: AZITHROMYCIN 250 MG TABLET 500 MG PO (22:15)
[2024-12-29] MEDS: DOXYCYCLINE HYCLATE 100 MG TABLET PO (22:15)
[2024-12-29 22:20] VITALS: BP 109/56; PULSE 86; RESP 22; TEMP 36.7; O2SAT 98
== END 2024-12-29 22:22 | disposition home or self-care (01) ==
PROVIDERS: Physician Assistant; Emergency Provider Registered Nurse; PCP Family Medicine
DX: U07.1 COVID-19 (principal); J06.9 Acute upper respiratory infection, unspecified; J18.9 Pneumonia, unspecified organism; I10 Essential (primary) hypertension; I25.10 Atherosclerotic heart disease of native coronary artery without angina pectoris; E78.5 Hyperlipidemia, unspecified; Z87.891 Personal history of nicotine dependence; E55.9 Vitamin D deficiency, unspecified; Z95.0 Presence of cardiac pacemaker; Z95.5 Presence of coronary angioplasty implant and graft; Z95.2 Presence of prosthetic heart valve; E53.8 Deficiency of other specified B group vitamins; R94.31 Abnormal electrocardiogram [ECG] [EKG]; I45.10 Unspecified right bundle-branch block; Z79.82 Long term (current) use of aspirin; Z79.899 Other long term (current) drug therapy; Z79.02 Long term (current) use of antithrombotics/antiplatelets
CPT/HCPCS: 36415; 71045; 80053; 81001; 83605; 85025; 85610; 85730; 86140; 87637; 93005; 99283; A9270

== ENCOUNTER 2025-03-25 12:33 | Outpatient (CLI) | payer MEDICARE, SELFPAY ==
[2025-03-25 18:08] LABS: Hematocrit 40.6 % (42.0-52.0); Hemoglobin 13.2 g/dL (14.0-18.0); Immature Granulocyte Percent A 0.3 % (0-0.5); Lymphocytes Absolute Auto 1.68 K/mm3 (0.9-3.2); Mean Corpuscular HGB Conc 32.5 g/dl (32-36); Mean Corpuscular Hemoglobin 30.0 pg (26-34); Mean Corpuscular Volume 92.3 fl (80-100); Nucleated Red Blood Cells Absolute Auto 0.000 K/mm3 (0.0-0.012); Nucleated Red Blood Cells Perc 0.0 % (0.0-0.2); Platelet Count Result 186 k/mm3 (150-375); Red Blood Count 4.40 M/mm3 (4.6-6.20); White Blood Count 6.5 K/mm3 (4.5-10.0)
[2025-03-25 18:26] LABS: Alanine Aminotransferase 22 U/L (6-50); Albumin Level 4.4 g/dL (3.5-5.1); Alkaline Phosphatase 96 U/L (38-126); Anion Gap 5 mmol/L (4-12); Aspartate Amino Transferase 72 U/L (17-59); Bilirubin,Total 1.4 mg/dL (0.2-1.3); Blood Urea Nitrogen 14 mg/dL (9-20); Calcium 9.2 mg/dL (8.4-10.2); Carbon Dioxide 28 mmol/L (22-30); Chloride 103 mmol/L (98-107); Estimated Glomerular Filt Rate > 60; Glucose 90 mg/dL (65-110); Potassium 4.2 mmol/L (3.4-5.0); Sodium 136 mmol/L (137-145); Total Protein 7.9 g/dL (6.3-8.2)
[2025-03-25 20:15] LABS: Hemoglobin A1C 5.2 % (<5.7)
== END 2025-03-25 12:34 | disposition home or self-care (01) ==
LOC: ANHGOSHLAB 12:34
PROVIDERS: PCP Family Medicine; Visit Provider Family Medicine
DX: D64.9 Anemia, unspecified (principal); R73.03 Prediabetes; I10 Essential (primary) hypertension
CPT/HCPCS: 36415; 80053; 83036; 85025